=== PATIENT | female | born 1965 | race Caucasian/White ===

== ENCOUNTER 2016-07-12 17:45 | Emergency (ER) | payer OTHER ==
[~2016-07-12] VITALS: Wt 43.2 kg
[~2016-07-12 17:45] MED LIST: ASPI-664 PO; ATOR20TA65 PO; CARV6.2579 PO; CIPR1DRO3 LEFT EAR; FURO40TA4 PO; HYDR-3498 PO; LISI-313 PO; RISP2TAB3 PO; SPIR25TA PO
[2016-07-12] MEDS ORDERED: SODIUM CHLORIDE 0.9% 1L BAG IV* STA (18:12)
--- NOTE | 2016-07-12 18:35 | RADRPT ---
PROCEDURE: XR Chest. CLINICAL INDICATION: Sepsis TECHNIQUE: Single AP portable chest COMPARISON: None. FINDINGS: The cardiac silhouette is enlarged. Mild persistent vascular congestion. .The lungs are otherwise clear without pleural effusion or focal consolidation. No pneumothorax. The osseous structures and s oft tissues are unremarkable. IMPRESSION: 1. Cardiomegaly and mild vascular congestion. RPTAT:AAJJ Physician Frank Date Time Electronically viewed and signed by Physician Frank on 07/12/2016 18:35 RAYRAY/
[2016-07-12 18:45] LABS: BASOPHILS % 0.6 % (0.0-2.0); EOSINOPHILS # 0.1 10^3/ul (0.0-0.5); EOSINOPHILS % 1.7 % (0.0-7.0); HEMATOCRIT 42.6 % (37.0-47.0); HEMOGLOBIN 14.5 g/dl (12.0-16.0); LYMPHOCYTES # 2.5 10^3/ul (0.8-2.9); LYMPHOCYTES % 33.7 % (15.0-51.0); MEAN CORPUSCULAR HEMOGLOBIN 29.6 pg (29.0-33.0); MEAN CORPUSCULAR VOLUME 86.9 fl (82.0-101.0); MEAN PLATELET VOLUME 10.1 fl (7.4-10.4); MONOCYTE # 0.7 10^3/ul (0.3-0.9); MONOCYTES % 9.8 % (0.0-11.0); NEUTROPHIL # 4.1 10^3/ul (1.6-7.5); NEUTROPHILS % 54.2 % (39.0-77.0); PLATELET COUNT 325 10^3/UL (140-440); RED CELL DISTRIBUTION WIDTH 23.2 % (11.5-14.5); UNCORRECTED WBC 7.5 10^3/ul (4.8-10.8); WHITE BLOOD COUNT 7.5 10^3/ul (4.8-10.8)
[2016-07-12 18:47] LABS: CONDITION 1; LH ANALYZER COMMENTS 1
[2016-07-12 18:49] LABS: CHLORIDE 102 mmol/L (97-110)
[2016-07-12 18:50] LABS: ALBUMIN 3.9 g/dl (3.3-4.9); POTASSIUM 3.8 mmol/L (3.5-5.1); PROTIME 13.2 Sec (12.2-14.2); SODIUM 143 mmol/L (135-144)
[2016-07-12 18:51] LABS: PARTIAL THROMBOPLASTIN TIME 25.8 Sec (25.0-35.0)
[2016-07-12 18:52] LABS: CREATININE 0.66 mg/dl (0.44-1.00)
[2016-07-12 18:53] LABS: ALANINE AMINOTRANSFERASE 239 IU/L (13-69); ALKALINE PHOSPHATASE 159 IU/L (42-121); ANION GAP 18 (8-16); ASPARTATE AMINO TRANSFERASE 189 IU/L (15-46); BILIRUBIN,INDIRECT 0.4 mg/dl (0-1.1); BILIRUBIN,TOTAL 0.4 mg/dl (0.2-1.3); BLOOD UREA NITROGEN 20 mg/dl (7-20); CALCIUM 9.2 mg/dl (8.4-10.2); CARBON DIOXIDE 27 mmol/L (21-31); GLUCOSE 130 mg/dl (70-220); TOTAL PROTEIN 8.2 g/dl (6.1-8.1)
[2016-07-12 18:56] LABS: C-REACTIVE PROTEIN < 0.5 mg/dl (0.0-0.9)
--- NOTE | 2016-07-12 19:11 | RADRPT ---
PROCEDURE: CT head, without contrast. CLINICAL INDICATION: Head trauma. TECHNIQUE: Noncontrast CT examination of the head, with axial, sagittal and coronal reformatted im ages. Automated dose exposure control was employed. CTDI: 39.37 mGy and DLP: 630.20 mGy-cm. COMPARISON: None. FINDINGS: Mild chronic changes of atrophy and small vessel disease white matter. Note acute hemorrhage. Subarachnoid spaces are substantially preserved and symmetric. Ventricles are unremarkable. No mass effect. Shah-white matter distinction is preserved without evident decreased attenuation t o suggest acute or recent infarct. Sinuses and osseous structures are unremarkable. IMPRESSION: Mild chronic changes of atrophy and small vessel disease white matter, and otherwise, no acute proce ss in the head. RPTAT: UU Physician Carlota Date Time Electronically viewed and signed by Physician Carlota on 07/12/2016 19:10 RS/
[2016-07-12 19:14] LABS: TROPONIN-I < 0.012 ng/ml (0.00-0.12)
--- NOTE | 2016-07-12 19:40 | RADRPT ---
PROCEDURE: CT Cervical Spine without contrast. CLINICAL INDICATION: Trauma. Neck pain. TECHNIQUE: A CT of the cervical spine was performed on a CT scanner utilizing thin section axial images from the skull base through the thoracic inlet. Sagittal and coronal reformatted images were made. The CTDIvol is 15.27 mGy and the DLP is 267.0 8 mGycm. Automated exposure control, adjustmen t of the mA and/or kV according to patient size, use of iterative reconstruction technique. COMPARISON: None. FINDINGS: Reversal of the normal cervical lordosis at C3-C4 and C4-C5. Diffuse endplate sclerosis of C5, C6, and C7. No fracture is evident. C2-3: Subtle anterolisthesis of C2 and C3 of 2 mm with posterior spondylitic ridging and bilateral u ncinate process hypertrophy. Severe left and moderate right hypertrophic facet joint arthropathy re sulting in moderate to severe right and moderate left foraminal stenosis. Mild central canal stenosi s of 9 mm in AP dimension. No significant disk bulge or protrusion is evident. C3-4: Marked loss of disk height with a 3 mm anterolisthesis of C3 on C4 with right uncinate process hypertrophy and severe bilateral facet joint arthropathy left greater than right with severe bilate ral foraminal stenosis. No significant disk bulge or protrusion is evident. Moderate central canal stenosis of 8 mm in AP dimension C4-5: The disc is normal in height. No significant disk bulge or protrusion is evident. Moderate nathan ateral facet joint arthropathy right greater than left. Moderate right foraminal stenosis without c entral canal stenosis. C5-6: Severe loss of disk height with endplate sclerosis and prominent anterior endplate spurring. Posterior spondylitic ridging and bilateral uncinate process hypertrophy. 3 mm of retrolisthesis of C5 on C6. Bilateral uncinate process hypertrophy and moderate to severe bilateral facet joint arthr opathy resulting in severe right and moderate to severe left foraminal stenosis and moderate central canal stenosis of 7.6 mm in AP dimension.. No significant disk bulge or protrusion is evident. C6-7: Severe loss of disk height with degenerative endplate sclerosis, prominent endplate spurring and posterior spondylitic ridging. Bilateral uncinate process hypertrophy. Moderate to severe bila teral facet joint arthropathy greater on the right severe bilateral foraminal stenosis and mild cent ral canal stenosis of 9.8 mm in AP dimension. No significant disk bulge or protrusion is evident. C7-T1: 2 mm of anterolisthesis of C7-T1 with circumferential disk bulging and posterior spondylitic ridging. Moderate to severe bilateral foraminal stenosis. No central canal stenosis. No signific ant disk bulge or protrusion is evident. The lung apices are clear. IMPRESSION: 1. Severe multilevel degenerative disk and spondylitic changes with reversal of the normal cervical lordosis at C4 and C5. This results in varying degrees of bilateral foraminal and central canal alexandra nosis as detailed above. 2. No fracture or soft tissue abnormality. RPTAT:AAJJ Physician Frank Date Time Electronically viewed and signed by Physician Frank on 07/12/2016 19:39 RAYRAY/
--- NOTE | 2016-07-12 19:44 | ERA ---
ER Documentation Chief Complaint Date/Time DATE: 07/12/16 TIME: 19:38 Chief Complaint UNABLE TO MOVE UPPER OR LOWER EXTREMITIES X3 DAYS, C/O NECK PAIN UNK TRAUMA HPI 51-year-old female, no known past medical history. The patient is a very difficult historian. The patient states that she is homeless and she may have fallen approximately 2-3 days ago. She states since then she has had neck pain and cannot move her arms and legs. The patient is describing moderate throbbing neck pain but cannot characterize it further. She states that she feels that she cannot move her arms and legs and has not been able to walk since the fall. She did not hit her head she says. The patient denies any chest pain but cannot provide any further history. ROS All systems reviewed and are negative except as per history of present illness. Medications Home Meds Active Scripts Spironolactone* (Aldactone*) 25 Mg Tablet, 25 MG PO DAILY@06 for 30 Days, TAB 3 Refills Prov:INOCENTE,SONU 05/17/16 Furosemide* (Furosemide*) 40 Mg Tablet, 40 MG PO DAILY for 30 Days, TAB 3 Refills Prov:INOCENTESONU 05/17/16 Carvedilol* (Carvedilol*) 6.25 Mg Tablet, 6.25 MG PO BID for 30 Days, TAB 3 Refills Prov:INOCENTESONU 04/27/16 Aspirin* (Aspirin* EC) 81 Mg Tablet.dr, 81 MG PO DAILY for 30 Days Prov:INOCENTE,SONU 04/18/16 Atorvastatin Calcium (Atorvastatin Calcium) 20 Mg Tablet, 20 MG PO HS for 30 Days, TAB Prov:SONU BROWER 04/18/16 Reported Medications Lisinopril* (Lisinopril*) 5 Mg Tablet, 5 MG PO DAILY, #30 TAB 07/12/16 Discontinued Scripts Ciprofloxacin Hcl (CIPROFLOXACIN HCL) 1 Each Droperette, 1 DROP LEFT EAR BID for 7 Days Prov:INOCENTE,SONU 05/17/16 Lisinopril* (Lisinopril*) 5 Mg Tablet, 2.5 MG PO QHS for 30 Days, TAB Prov:INOCENTE,SONU 05/17/16 Risperidone* (Risperidone*) 2 Mg Tablet, 2 MG PO BID for 30 Days, TAB 3 Refills Prov:SONU BROWER 04/27/16 Hydrocodone Bit-Acetaminophen (Hydrocodone Bit-APAP) 5-325MG Tablet, 1 TAB PO Q6H Y for PAIN LEVEL 4-6, #60 TAB Prov:SONU BROWER 04/18/16 Allergies Allergies: Coded Allergies: haloperidol (Verified Allergy, Unknown, 07/12/16) PMhx/Soc History of Surgery: No Anesthesia Reaction: No Hx Neurological Disorder: Yes (numbness/tingling both feet) Hx Respiratory Disorders: Yes Hx Cardiac Disorders: Yes (CHF) Hx Psychiatric Problems: No Hx Miscellaneous Medical Probl: No Hx Alcohol Use: Yes Hx Substance Use: Yes (PREVIOUS) Hx Tobacco Use: Yes (current smoker) Smoking Status: Current every day smoker FmHx Family History: No diabetes Physical Exam Vitals Vital Signs Date Time Temp Pulse Resp B/P Pulse Ox O2 Delivery O2 Flow Rate FiO2 07/12/16 19:46 88 16 128/80 99 Room Air 07/12/16 17:51 98.9 92 20 77/51 100 Physical Exam General: Dirty, disheveled, cachectic Head: Normocephalic, atraumatic. Eyes: Pupils equally reactive, EOM intact ENT: Very dry mucous membranes Neck: Supple, no lymphadenopathy no midline tenderness or deformities, patient emergently placed in a c-collar Respiratory: Lungs clear bilaterally, no distress Cardiovascular: RRR, no murmurs, rubs, or gallops Abdominal: Soft, non-tender, non-distended, no peritoneal signs, pelvis is stable : Deferred MSK: No edema, no unilateral swelling, the patient cannot lift extremities against gravity however her exam seems to be somewhat inconsistent and the patient has slight movement of all 4 extremities Neurologic: Alert and oriented, motor exam as above, normal speech, generalized weakness as described above Skin: No rash, no contusions to the head chest or abdomen Psych: Normal mood Result Diagram: 07/12/160 07/12/160 Results 24 hrs Laboratory Tests Test 07/12/16 18:20 07/12/16 19:40 07/12/16 20:00 Activated Partial Thromboplast Time 25.8Sec Alanine Aminotransferase (ALT/SGPT) 239IU/L Albumin 3.9g/dl Albumin/Globulin Ratio 0.90 Alkaline Phosphatase 159IU/L Anion Gap 18 Aspartate Amino Transf (AST/SGOT) 189IU/L Basophils # 0.010^3/ul Basophils % 0.6% Blood Morphology Comment Blood Urea Nitrogen 20mg/dl C-Reactive Protein < 0.5mg/dl Calcium Level 9.2mg/dl Carbon Dioxide Level 27mmol/L Chloride Level 102mmol/L Creatinine 0.66mg/dl Direct Bilirubin 0.00mg/dl Eosinophils # 0.110^3/ul Eosinophils % 1.7% Erythrocyte Sedimentation Rate 25mm/Hr Ethyl Alcohol Level 173.0mg/dl Globulin 4.30g/dl Glucose Level 130mg/dl Hematocrit 42.6% Hemoglobin 14.5g/dl INR International Normalized Ratio 1.00 Indirect Bilirubin 0.4mg/dl Lactic Acid Level 3.2mmol/L 3.9mmol/L Lymphocytes # 2.510^3/ul Lymphocytes % 33.7% Mean Corpuscular Hemoglobin 29.6pg Mean Corpuscular Hemoglobin Concent 34.0g/dl Mean Corpuscular Volume 86.9fl Mean Platelet Volume 10.1fl Monocytes # 0.710^3/ul Monocytes % 9.8% Neutrophils # 4.110^3/ul Neutrophils % 54.2% Nucleated Red Blood Cells # 0.010^3/ul Nucleated Red Blood Cells % 0.0/100WBC Platelet Count 68783^3/UL Potassium Level 3.8mmol/L Prothrombin Time 13.2Sec Prothrombin Time Ratio 1.0 Red Blood Count 4.9010^6/ul Red Cell Distribution Width 23.2% Sodium Level 143mmol/L Total Bilirubin 0.4mg/dl Total Protein 8.2g/dl Troponin I < 0.012ng/ml White Blood Count 7.510^3/ul Urine Amphetamines Screen POSITIVE Urine Barbiturates NEGATIVE Urine Benzodiazepines Screen NEGATIVE Urine Bilirubin NEGATIVE Urine Cannabinoids NEGATIVE Urine Clarity CLEAR Urine Cocaine Screen NEGATIVE Urine Color LT. YELLOW Urine Glucose NEGATIVE% Urine Hemoglobin NEGATIVE Urine Ketones NEGATIVE Urine Leukocyte Esterase NEGATIVE Urine Nitrite NEGATIVE Urine Opiates Screen NEGATIVE Urine Specific [place] <=1.005 Urine Total Protein NEGATIVE Urine Urobilinogen 1.0 E.U./dL Urine pH 6.0 Current Medications Medications (Trade) Dose Ordered Sig/Thelma Route PRN Reason Start Time Stop Time Status Last Admin Dose Admin Sodium Chloride (NS) 1,340 ml BOLUS OVER 2 HOURS STAT IV* 07/12/16 18:12 07/12/16 18:15 DC 07/12/16 18:34 Morphine Sulfate (morphine) 4 mg ONCE STAT IV 07/12/16 20:07 07/12/16 20:17 DC 07/12/16 20:30 Ondansetron HCl (Zofran Inj) 4 mg ONCE STAT IV 07/12/16 20:07 07/12/16 20:17 DC 07/12/16 20:30 Lorazepam 0.5 mg 0.5 mg ONCE ONCE IV 07/12/16 21:00 07/12/16 21:01 DC 07/12/16 21:03 Sodium Chloride (NS) 1,000 ml @ 1,000 mls/hr Q1H STAT IV 07/12/16 21:18 07/12/16 22:17 DC Lorazepam (Ativan) 0.5 mg ONCE ONCE IV 07/12/16 23:00 07/12/16 23:01 DC Morphine Sulfate (morphine) 4 mg ONCE STAT IV 07/12/16 22:50 07/12/16 22:51 DC Procedures/MDM EKG, MONITORS, & DIAGNOSTIC IMAGING: EKG: I reviewed and interpreted a 12-lead EKG. Rhythm: Normal sinus rhythm Ectopy: None Intervals: No abnormalities ST segments: No elevations or depressions T waves: No contiguous inversions Chest x-ray: I reviewed and interpreted a 1 view of the chest Mediastinum: No enlargement Cardiac silhouette: No cardiomegaly Airspace: Clear lung godoy bilaterally without evidence of pneumothorax Bones: No evidence of fracture CT brain: IMPRESSION: Mild chronic changes of atrophy and small vessel disease white matter, and otherwise, no acute process in the head. RPTAT: UU CT cervical spine: IMPRESSION: 1. Severe multilevel degenerative disk and spondylitic changes with reversal of the normal cervical lordosis at C4 and C5. This results in varying degrees of bilateral foraminal and central canal stenosis as detailed above. 2. No fracture or soft tissue abnormality. MRI C-spine: IMPRESSION: 1. Multilevel degenerative spondylosis of the cervical spine as described above. 2. Multilevel central canal stenosis which is most prominent at C3-4 with moderate to severe narrowing. 3. Severe multilevel foraminal stenosis secondary to uncovertebral osteophytosis and facet arthropathy as described above. 4. Reversal of the cervical lordosis with 2 mm anterolisthesis at C3-4. RPTAT: HPNM Results were discussed with Regino Lopez at 07/12/2016 10:22:27 PM MRI L SPine IMPRESSION: 1. Trace degenerative 2 mm retrolisthesis of L3 and L4 without evidence for acute fractures or traumatic subluxations. 2. Mild disk space height loss and broad-based bulge at L3-4 with mild central canal stenosis. 3. Multilevel disk desiccation at L4-5 and L5-S1 4. Mild broad-based bulges at the L2-3 through L5-S1 level with mild central canal stenosis at L3-4 and L4-5. 5. Mild bilateral neural foraminal stenosis and subarticular recess stenosis at L3-4. Recommend correlation with a bilateral L3 and L4 radiculopathy respectively. MRI T spine IMPRESSION: 1.Unremarkable MRI of the thoracic spine without findings to explain the patient 's provided history. 2. For further information regarding the abnormalities on the MRI cervical spine , please refer to the separately issued report. Physician David Date Time Electronically viewed and signed by Physician David on 07/12/2016 22:31 LAB INTERPRETATION: Normal white count however the patient's lactic acid is slightly elevated at 3.2 than 3.9. Alcohol is slightly elevated at 173 and the patient does have positive amphetamine drug screen MEDICAL DECISION MAKING: The patient presents to the emergency room with possible fall, neck pain, weakness to upper and lower extremities bilaterally, hypotension. Her differential is extremely broad and somewhat perplexing. The patient seems to have some motor movement of all 4 extremities therefore not truly quadriplegic. She states a possible trauma therefore intracranial hemorrhage or C-spine injury is certainly possible. However the patient also has hypotension. This is presumed to be secondary to severe dehydration and malnutrition given that the patient has not been able to move for approximately 2-3 days. However consider possible infectious process such as sepsis. This does not appear to be neurogenic shock though must consider that as well. The patient will absolutely benefit from CT imaging of the head and cervical spine, aggressive fluid resuscitation and blood cultures. The patient will also likely require MRi imaging of the head and cervical spine. This is not consistent with a stroke given bilateral nature, patient does not appear to have a basilar artery stroke given normal sensorium, protecting her airway and intact cranial nerves. The patient's exam is somewhat inconsistent, consideration for malingering however benefit that must be provided and diagnostic imaging and workup will be initiated. Lower clinical concern for infectious process such as epidural abscess or hematoma. Consider possible transverse myelitis Guyon Cobb etc. ER COURSE: The patient was maintained in C-spine precautions. The patient states that she was unable to urinate and a Garcia catheter was placed. The patient has multiple abnormalities. Her blood pressure dramatically improved with fluid resuscitation. The patient does have a lactic acidosis but no Sirs criteria. This does raise the concern for dehydration versus spinal shock. The patient does not require pressors, fluid support is appropriate. At this time I do not feel the patient requires antibiotics. She has no Sirs criteria, no source. Blood cultures been taken. Lactic acid likely secondary to relative hypovolemia , continue fluid resuscitation. She has been given 3 L and total. The patient's CT imaging was negative prompting MRI imaging. The MRI of the cervical spine shows evidence of significant stenosis with myelopathy. This is likely the etiology of the patient's symptoms and weakness. I was able to speak to my neurosurgeon, Dr. Nguyen. We discussed the case. He is concerned that since the patient fell this is likely the source of the patient's injury and that she would benefit from transfer to a trauma center. He states that the patient likely has chronic cervical radiculopathy in her fall has led to an exacerbation of this leading to acute cord compression. He does not recommend steroids but does recommend transfer to trauma facility. Phone calls to be made to [facility] and [place] in order to arrange for transfer. The patient has been given pain control medication and anxiolysis here in the emergency room a total of 1 mg of Ativan and several doses of morphine. She remains protecting her airway. At this time the patient does not require central line, she has been responsive to fluids, blood pressure currently in the 140s systolic. I kept the patient and/or family informed of laboratory and diagnostic imaging results throughout the emergency room course. DISPOSITION PLAN: Transfer to a trauma center. The patient is endorsed to Dr. Nelson to follow- up on disposition planning. CONSULTATION: Neurosurgery, Dr. Nguyen, was notified and recommended transfer. Critical Care Note: Total time: 47 minutes Indication/Organ System Threat: Hypotension and acute cervical radiculopathy I spent the above amount of critical care time with the patient, not including billable procedures. This included chart review, consultations, repeat bedside evaluations, and titration of appropriate medications to prevent cardiopulmonary or respiratory collapse. Departure Diagnosis: Primary Impression: Acute cervical radiculopathy Additional Impressions: Cord compression myelopathy Lactic acidosis Condition: Stable REGINO LOPEZ MD Jul 12, 2016 19:44
[2016-07-12 19:46] VITALS: RESP 16
[2016-07-12] MEDS ORDERED: LISI-313 PO (19:50)
[2016-07-12] MEDS ORDERED: morphine 4 MG/ML VIAL IV STA ×2 (20:07→22:50)
[2016-07-12] MEDS ORDERED: ONDANSETRON 4 MG INJ IV STA (20:07)
[2016-07-12 20:09] LABS: ADD UMIC NO; URINE BILIRUBIN (Dip) NEGATIVE (NEGATIVE); URINE BLOOD (Dip) NEGATIVE (NEGATIVE); URINE COLOR LT. YELLOW (YELLOW); URINE GLUCOSE (Dip) NEGATIVE (NEGATIVE); URINE KETONES (Dip) NEGATIVE (NEGATIVE); URINE LEUKOCYTE ESTERASE (Dip) NEGATIVE (NEGATIVE); URINE NITRITE (Dip) NEGATIVE (NEGATIVE); URINE TOTAL PROTEIN (Dip) NEGATIVE (NEGATIVE); URINE UROBILINOGEN (Dip) 1.0 E.U./dL (0.1-1.0)
[2016-07-12 20:40] LABS: BARBITURATES NEGATIVE (NEGATIVE); BENZODIAZEPINES NEGATIVE (NEGATIVE); CANNABINOIDS NEGATIVE (NEGATIVE); COCAINE NEGATIVE (NEGATIVE); OPIATES NEGATIVE (NEGATIVE)
[2016-07-12] MEDS ORDERED: LORAZEPAM 2 MG INJ IV ONE ×2 (21:00→23:00)
[2016-07-12] MEDS ORDERED: SOD CHLORIDE 0.9% 1,000 ML IV STA (21:18)
--- NOTE | 2016-07-12 22:24 | RADRPT ---
PROCEDURE: MR Cervical Spine. CLINICAL INDICATION: Neck pain. Inability to walk. Arm and leg weakness TECHNIQUE: An MRI of the cervical spine was performed on a high-definition scanner utilizing the f ollowing sequences: Sagittal T1 weighted, sagittal axial T2 weighted, sagittal STIR, and axial GRE. COMPARISON: No prior studies are available for comparison. FINDINGS: Approximately 2 mm of anterolisthesis at C3-4 is seen. The remainder of the cervical lordosis is sl ightly reversed. There is maintenance of the normal vertebral body heights. Modic type 2 endplate c hanges are seen at C5-6. The remainder of the marrow signal throughout the visualized cervical spin e is homogeneous without focal abnormality. The craniocervical and cervical medullary junctions are unremarkable. Suggestion of a faint hyperintense T2 signal within the cord at the C3-4 level is seen . The remainder of the cervical cord is normal in caliber and signal intensity. The paravertebral s oft tissues are unremarkable. Multilevel endplate and uncovertebral osteophytosis is seen. Occiput-C2: The anatomic relationships are normal without canal stenosis. C2-3: Disk dessication is seen with mild disk height loss. A posterior disk bulge is seen. Ligamen mark flavum thickening is seen. Mild to moderate central canal stenosis is seen. Severe left forami nal stenosis and moderate foraminal stenosis is seen secondary to uncovertebral osteophytes and face t arthropathy. C3-4: Disk dessication is seen with mild to moderate disk height loss. A posterior disk osteophyte complex is seen. Ligamentum flavum thickening is seen. Moderate to severe central canal stenosis i s seen. Severe bilateral foraminal stenosis is seen secondary to uncovertebral osteophytosis and fa cet arthropathy. C4-5: Disk dessication is seen with mild to moderate disk height loss with a posterior disk bulge. Mild to moderate central canal stenosis is seen. Severe right foraminal stenosis and moderate to se florencio left foraminal stenosis is seen secondary to uncovertebral osteophytosis. C5-6: Disk dessication is seen. Moderate disk height loss is seen with a posterior disk osteophyte complex seen. Ligamentum flavum thickening is seen. Moderate central canal stenosis is seen. Sever e bilateral foraminal stenosis is seen secondary to uncovertebral osteophytosis. C6-7: Moderate to severe disk height loss is seen with post a disk osteophyte complex noted. Modera te central canal stenosis is seen. Severe bilateral foraminal stenosis is seen secondary to uncover tebral osteophytosis. C7-T1: The intervertebral disc is seen. Ligamentum flavum thickening is seen. Borderline central can al stenosis is seen. Moderate to severe bilateral foraminal stenosis is seen secondary to uncoverteb ral osteophytosis. IMPRESSION: 1. Multilevel degenerative spondylosis of the cervical spine as described above. 2. Multilevel central canal stenosis which is most prominent at C3-4 with moderate to severe narrow ing. 3. Severe multilevel foraminal stenosis secondary to uncovertebral osteophytosis and facet arthropa thy as described above. 4. Reversal of the cervical lordosis with 2 mm anterolisthesis at C3-4. RPTAT: HPNM Results were discussed with Regino Lopez at 07/12/2016 10:22:27 PM Physician Milly Date Time Electronically viewed and signed by Paulo Cuevas Physician on 07/12/2016 22:23 /
--- NOTE | 2016-07-12 22:31 | RADRPT ---
PROCEDURE: MR thoracic spine without contrast CLINICAL INDICATION: Weakness of arm and legs. Inability to ambulate TECHNIQUE: An MRI of the thoracic spine was performed utilizing sagittal T1-weighted, sagittal and axial T2-weighted, and sagittal STIR. COMPARISON: Cervical spine MRI 07/12/2016 FINDINGS: Vertebral bodies: Preservation of signal intensity and stature at every level. The kyphosis is int act as is alignment. Thoracic spinal cord: Normal in signal intensity and caliber at every level. T1-2: There is preservation of disk signal intensity and stature with no central canal or foraminal stenosis. The facet joints are normal. T2-3: No discogenic abnormality of significance is seen and there is no central canal or foraminal s tenosis. The facet joints are intact. T3-4: No discogenic abnormality of significance is seen and there is no central canal or foraminal stenosis. The facet joints are intact. T4-5: No discogenic abnormality of significance is seen and there is no facet arthropathy, central canal or foraminal stenosis. T5-6: No discogenic abnormality of significance is seen and there is no facet arthropathy, central canal or foraminal stenosis T6-7: No discogenic abnormality of significance is seen and there is no central canal or foraminal stenosis. The facet joints are intact. T7-8: No discogenic abnormality of significance is seen and there is no facet arthropathy, central c anal or foraminal stenosis T8-9: No discogenic abnormality of significance is seen and there is no facet arthropathy, central canal or foraminal stenosis T9-10: No discogenic abnormality of significance is seen and there is no facet arthropathy, central canal or foraminal stenosis T10-11: No discogenic abnormality of significance is seen and there is no facet arthropathy, central canal or foraminal stenosis T11-12: No discogenic abnormality of significance is seen and there is no facet arthropathy, centra l canal or foraminal stenosis T12-L1: No discogenic abnormality of significance is seen and there is no facet arthropathy, centra l canal or foraminal stenosis Non spine related findings: No abnormalities of significance are demonstrated. RPTAT:HJJR IMPRESSION: 1.Unremarkable MRI of the thoracic spine without findings to explain the patient's provided history. 2. For further information regarding the abnormalities on the MRI cervical spine, please refer to th e separately issued report. Thony Campos, Physician Date Time Electronically viewed and signed by Thony Campos Physician on 07/12/2016 22:31 JR/
--- NOTE | 2016-07-12 22:55 | RADRPT ---
PROCEDURE: MRI lumbar spine CLINICAL INDICATION: Weakness of the arms and legs TECHNIQUE: An MRI of the lumbar spine was performed utilizing the following sequences: Sagittal T 1 weighted, sagittal and dual echo axial T2 weighted, and sagittal T2 weighted with fat saturation. COMPARISON: No prior lumbar spine imaging available for comparison, prior CT abdomen pelvis 2015 FINDINGS: There is straightening of the normal lumbar lordosis. Trace 2 mm degenerative retrolisthesis of L3 a nd L4 is present. No acute fractures or traumatic subluxations are present. Preservation of verteb ral body heights and signal are noted. Mild anterior Modic type 2 degenerative endplate changes are present at the L3-4 level. The intervertebral discs demonstrate mild disk space height loss and L3 -4 and disk desiccation at L4-5 and L5-S1. The conus medullaris terminates normally at the L1 leve l. The bilateral paravertebral soft tissues are remarkable for several right renal cortical cysts wi th the largest measuring 1.2 cm in AP dimensions. The specific axial levels are as follows: T12 - L1: The disk is normal in appearance. The central canal, subarticular recess, and neural fo ramen are patent. Mild bilateral facet arthropathy and facet effusions are present. L1 - L2: The disk is normal in appearance. The central canal, subarticular recess, and neural for amen are patent. Mild bilateral facet arthropathy is present. L2 - L3: The disk is normal in appearance. A mild 2 mm annular bulge is present. The central canal , subarticular recess, and neural foramen are patent. Mild bilateral facet arthropathy is present. L3 - L4: Mild disk space height loss is present with a 2 mm broad-based bulge. Mild bilateral face t arthropathy and facet effusions are present. AP canal dimension is 9 mm. This results in a mild central canal stenosis, bilateral subarticular recess stenosis, and mild bilateral neural foraminal stenosis. Recommend correlation with a bilateral L4 and L3 radiculopathy respectively. L4 - L5: Disk desiccation is present with a mild 3 mm broad-based bulge. AP canal dimension is 9.7 mm. This results in a mild central canal stenosis, bilateral subarticular recess stenosis and bila teral neural foraminal stenosis. Mild bilateral facet arthropathy and facet effusions are present. L5 - S1: Disk desiccation is present with a mild annular bulge measuring 2 mm. A central annular te ar superimposed on a mild annular bulge. The central canal, subarticular recess and neural foramen a re patent. IMPRESSION: 1. Trace degenerative 2 mm retrolisthesis of L3 and L4 without evidence for acute fractures or traum atic subluxations. 2. Mild disk space height loss and broad-based bulge at L3-4 with mild central canal stenosis. 3. Multilevel disk desiccation at L4-5 and L5-S1 4. Mild broad-based bulges at the L2-3 through L5-S1 level with mild central canal stenosis at L3-4 and L4-5. 5. Mild bilateral neural foraminal stenosis and subarticular recess stenosis at L3-4. Recommend co rrelation with a bilateral L3 and L4 radiculopathy respectively. RPTAT: HDC .Marielle Suarez MD, Date Time Electronically viewed and signed by .Marielle Suarez MD, on 07/12/2016 22:55 .C/
--- NOTE | 2016-07-12 23:29 | RADRPT ---
PROCEDURE: MR Brain without contrast. CLINICAL INDICATION: Leg and arm weakness. TECHNIQUE: An MRI of the brain was performed on a 1.5 zoë scanner utilizing the following sequen rony: Sagittal T1 weighted, axial T2 weighted, axial FLAIR, coronal GRE, and axial diffusion weighted with ADC mapping. COMPARISON: None FINDINGS: No evidence of restricted diffusion to suggest acute or early subacute ischemic infarction. There i s no evidence of intracranial hemorrhage, mass effect, or midline shift. No extra-axial fluid collec tions are seen. No hypointense signal abnormalities are seen on the GRE images to suggest the presence of blood degr adation products. Scattered nonspecific periventricular and subcortical white matter T2 signal hyperintensity foci mos t compatible with sequelae of chronic microvascular ischemic injury. Differential diagnostic consid erations include sequelae of migraine, vasculopathy, and demyelinating disease. The brain parenchyma is otherwise normal in morphology with preservation of rivera white differentiati on . Age appropriate size of the ventricles and subarachnoid spaces. The posterior fossa contents, brainstem, seventh - eighth cranial nerve complexes, pituitary axis, o rbits, paranasal sinuses, and mastoid air cells are unremarkable. Normal flow voids are visible in the proximal intracranial arteries and dural sinuses, indicating pa tency. IMPRESSION: 1. No acute or early subacute ischemic infarction. 2. Nonspecific T2 signal hyperintensity foci of deep white matter most compatible with Chronic micr ovascular ischemic changes in the deep white matter. Differential diagnostic considerations discuss ed above. 3. No intracranial hemorrhage RPTAT:AAJJ Physician Frank Date Time Electronically viewed and signed by Physician Frank on 07/12/2016 23:28 RAYRAY/
[2016-07-13 01:03] VITALS: BP 189/105; PULSE 88; TEMP 98.5
== END 2016-07-13 01:39 | disposition short-term general hospital (02) ==
LOC: E/R 17:45
DX: M54.12 Radiculopathy, cervical region (principal); R40.2132 Coma scale, eyes open, to sound, at arrival to emergency department; G95.29 Other cord compression; E87.2 Acidosis; I50.9 Heart failure, unspecified; F17.210 Nicotine dependence, cigarettes, uncomplicated; G93.89 Other specified disorders of brain; R40.2242 Coma scale, best verbal response, confused conversation, at arrival to emergency department; R40.2362 Coma scale, best motor response, obeys commands, at arrival to emergency department; W18.39XA Other fall on same level, initial encounter; Y92.9 Unspecified place or not applicable; Z79.82 Long term (current) use of aspirin
CPT/HCPCS: 36415; 51702; 70450; 70551; 71010; 72125; 72141; 72146; 72148; 80053; 80306; 80307; 81003; 83605; 84484; 85025; 85610; 85651; 85730; 86140; 87040; 87086; 93005; 96361; 96374; 96375; 96376; J2060; J2270; J2405; J7030; Z7502

== ENCOUNTER 2016-09-03 13:12 | Inpatient (IN) | payer OTHER ==
[~2016-09-03] VITALS: Ht 154.9 cm; Wt 42.1 kg
[~2016-09-03 13:12] MED LIST changes: -CIPR1DRO3 LEFT EAR; -HYDR-3498 PO; -RISP2TAB3 PO
[2016-09-03] MEDS ORDERED: FAMO20TA18 PO (15:26)
[2016-09-03] MEDS ORDERED: METO25TA7 PO (15:27)
--- NOTE | 2016-09-03 16:33 | RADRPT ---
PROCEDURE: CT Cervical Spine without contrast. CLINICAL INDICATION: Unable to walk, bilateral lower extremity numbness. TECHNIQUE: The study was performed on a multislice multidetector CT scanner. Spiral axial 1 mm im ages were obtained through the cervical spine and reformatted at 2.5 mm slice thickness without cont rast. 1 or more of the following dose reduction techniques were utilized: Automated exposure contr ol, adjustment of the mA and/or kV according to patient's size, iterative reconstruction technique. Coronal and sagittal reformations were obtained. The images were reviewed on a PACS workstation. RADIATION DOSE: CTDIvol: 22.1 mGyDLP: 388.6 mGy-cm COMPARISON: 07/12/2016 FINDINGS: There is redemonstration of multilevel moderate to severe degenerative changes throughout the cervic al spine. There is 3-4 mm of anterolisthesis of C3 on the C4 and 2 mm of anterolisthesis of C4, sta ble compared to prior exam. There are diffuse anterior osteophytes with severe narrowing of the int ervertebral discs at C5-6 and C6-7, with associated severe discogenic endplate changes at these leve ls. There are moderate degenerate changes of the atlanto-odontoid articulation. There is mild post erior bowing of the tentorial membrane without significant narrowing of the craniocervical junction. There is a moderate right convex scoliosis centered at C3, stable compared to the prior exam. The craniocervical junction is intact. There is no evidence of fracture or dislocation. There is a no bone destruction or sclerosis. The paraspinal soft tissues are unremarkable. No significant parasp inal soft tissue swelling. The lung apices are normal in appearance. C2-3: There is a broad-based 2 mm posterior disc/osteophyte complex. The thecal sac measures 6.5 mm midline AP diameter. There is severe bilateral facet spondylosis with buckling ligamentum flavum. There is moderate bilateral uncovertebral joint spondylosis. There is severe bilateral neural fora checo narrowing. C3-4: There is a broad-based 2-3 mm posterior disc/osteophyte complex. The thecal sac measures 5.5 mm midline AP diameter. There is mild bilateral facet hypertrophy and moderate bilateral uncoverteb ral joint spondylosis. There is severe bilateral neural foraminal narrowing. C4-5: There is a broad-based 2 mm posterior disc/osteophyte complex. The thecal sac measures 8.8 mm midline AP diameter. There is moderate and mild left facet intervertebral joint spondylosis. Ther e is severe right and mild left neural foraminal narrowing. C5-6: There is a grade 1 retrolisthesis, with a superimposed 2-3 mm posterior disc/osteophyte comple x. The thecal sac measures 6.1 mm midline AP diameter. There is moderate bilateral facet hypertrop hy and severe bilateral uncovertebral joint spondylosis. There is severe bilateral neural foraminal narrowing. C6-7: There is a 2-3 mm posterior disc/osteophyte complex. The thecal sac measures 6.4 mm midline AP diameter. There is moderate bilateral facet hypertrophy and severe bilateral uncovertebral joint spondylosis. There is severe bilateral neural foraminal narrowing. C7-T1: There is a 1-2 mm posterior disc/osteophyte complex. The thecal sac is patent measuring 9 mm midline AP diameter. There is mild bilateral facet hypertrophy and moderate bilateral uncovertebra l joint spondylosis. There is severe bilateral neural foraminal narrowing. IMPRESSION: 1. No acute abnormality of the cervical spine. No evidence of fracture or dislocation. 2. No significant interval change compared to 07/12/2016. Stable appearance of multilevel severe d egenerative discs disease with multisegmental severe spinal stenosis at C2-3, C3-4, C5-6 and C6-7. 3. Multilevel facet and uncovertebral joint spondylosis with multilevel severe neural foraminal patricia rowing as discussed above. RPTAT: HGAS .Torin Chun MD, Date Time Electronically viewed and signed by .Torin Chun MD, on 09/03/2016 16:32 .S/
[2016-09-03] MEDS ORDERED: SOD CHLORIDE 0.9% 1,000 ML IV STA (16:46)
[2016-09-03 17:13] LABS: ADD SCAN DIFF NO
[2016-09-03 17:14] LABS: BASOPHIL # 0.1 10^3/ul (0.0-0.1); BASOPHILS % 0.6 % (0.0-2.0); EOSINOPHILS # 0.2 10^3/ul (0.0-0.5); EOSINOPHILS % 1.8 % (0.0-7.0); HEMATOCRIT 39.4 % (37.0-47.0); HEMOGLOBIN 12.9 g/dl (12.0-16.0); LYMPHOCYTES # 1.9 10^3/ul (0.8-2.9); LYMPHOCYTES % 18.5 % (15.0-51.0); MEAN CORPUSCULAR HEMOGLOBIN 32.1 pg (29.0-33.0); MEAN CORPUSCULAR HGB CONC 32.7 g/dl (32.0-37.0); MEAN PLATELET VOLUME 10.3 fl (7.4-10.4); MONOCYTE # 1.4 10^3/ul (0.3-0.9); MONOCYTES % 13.2 % (0.0-11.0); NEUTROPHIL # 6.7 10^3/ul (1.6-7.5); NEUTROPHILS % 65.5 % (39.0-77.0); PLATELET COUNT 397 10^3/UL (140-415); RED BLOOD COUNT 4.02 10^6/ul (4.20-5.40); RED CELL DISTRIBUTION WIDTH 14.1 % (11.5-14.5); WHITE BLOOD COUNT 10.3 10^3/ul (4.8-10.8)
[2016-09-03 17:29] LABS: ALBUMIN 4.1 g/dl (3.3-4.9)
[2016-09-03 17:31] LABS: CREATININE 2.37 mg/dl (0.44-1.00)
[2016-09-03 17:32] LABS: ALBUMIN/GLOBULIN RATIO 0.82; BILIRUBIN,INDIRECT 0.5 mg/dl (0-1.1); BILIRUBIN,TOTAL 0.5 mg/dl (0.2-1.3); CALCIUM 9.7 mg/dl (8.4-10.2); TOTAL PROTEIN 9.1 g/dl (6.1-8.1)
--- NOTE | 2016-09-03 17:40 | RADRPT ---
PROCEDURE: XR Chest. CLINICAL INDICATION: Shortness of breath. TECHNIQUE: A single portable view of the chest was obtained. COMPARISON: 07/12/2016 FINDINGS: The aorta is tortuous and atherosclerotic. The cardiomediastinal silhouette is otherwise mildly enl arged and is decreased in size.. The lungs and pleural spaces are clear. The soft tissues and osse ous structures demonstrate benign age related senescent changes. IMPRESSION: No acute cardiopulmonary disease. Mild cardiomegaly which has decreased in size. RPTAT: HPNM Physician Milly Date Time Electronically viewed and signed by Paulo Cuevas Physician on 09/03/2016 17:40 /
[2016-09-03 17:43] LABS: POTASSIUM 6.2 mmol/L (3.5-5.1)
[2016-09-03 17:44] LABS: TROPONIN-I 0.039 ng/ml (0.00-0.12)
[2016-09-03] MEDS ORDERED: NA POLYST SULFON 15 GM/60 ML BTL PO STA (17:54)
[2016-09-03] MEDS ORDERED: CA CHLORIDE 10% 10 ML SYRINGE IV STA (17:54)
[2016-09-03] MEDS ORDERED: NA BICARBONATE 8.4% 50 ML SYG IV STA (17:54)
[2016-09-03] MEDS ORDERED: INSULIN REGULAR, HUMAN 100 UNIT/1 ML 3ML VIAL IV STA (17:54)
[2016-09-03] MEDS ORDERED: DEXTROSE 50% 50 ML SYRINGE IV PRN (18:00)
[2016-09-03 18:45] LABS: ADD UMIC NO; URINE BILIRUBIN (Dip) NEGATIVE (NEGATIVE); URINE BLOOD (Dip) NEGATIVE (NEGATIVE); URINE COLOR LT. YELLOW (YELLOW); URINE KETONES (Dip) NEGATIVE (NEGATIVE); URINE LEUKOCYTE ESTERASE (Dip) NEGATIVE (NEGATIVE); URINE NITRITE (Dip) NEGATIVE (NEGATIVE); URINE TOTAL PROTEIN (Dip) NEGATIVE (NEGATIVE); URINE UROBILINOGEN (Dip) 0.2 E.U./dL (0.1-1.0)
[2016-09-03] MEDS ORDERED: SOD CHLORIDE 0.9% 1,000 ML IV SCH (19:13)
--- NOTE | 2016-09-03 19:20 | ERA ---
ER Documentation Chief Complaint Date/Time DATE: 09/03/16 TIME: 19:14 Chief Complaint NECK PAIN X 1 MONTH, UNABLE TO WALK HPI This 51-year-old female presents to the emergency room for evaluation of generalized weakness, neck pain for 1 month. The patient states that she is wheelchair-bound and has been getting worse. She states that she lives at a home and is not getting the care she needs at this home. She states that she is not in a nursing facility or rehabilitation center. The patient states that she came to the ER today for help because she is not getting the care she needs at this home where she is living at. ROS All systems reviewed and are negative except as per history of present illness. Medications Home Meds Active Scripts Furosemide* (Furosemide*) 40 Mg Tablet, 40 MG PO DAILY for 30 Days, TAB 3 Refills Prov:INOCENTESONU 05/17/16 Carvedilol* (Carvedilol*) 6.25 Mg Tablet, 6.25 MG PO BID for 30 Days, TAB 3 Refills Prov:INOCENTESONU 04/27/16 Atorvastatin Calcium (Atorvastatin Calcium) 20 Mg Tablet, 20 MG PO HS for 30 Days, TAB Prov:SONU BROWER 04/18/16 Reported Medications Metoprolol Succinate* (Toprol XL*) 25 Mg Tab.sr.24h, 25 MG PO DAILY, #30 TAB 09/03/16 Famotidine* (Famotidine*) 20 Mg Tablet, 20 MG PO BID, #60 TAB 09/03/16 Lisinopril* (Lisinopril*) 5 Mg Tablet, 5 MG PO DAILY, #30 TAB 07/12/16 Discontinued Scripts Spironolactone* (Aldactone*) 25 Mg Tablet, 25 MG PO DAILY@06 for 30 Days, TAB 3 Refills Prov:SONU BROWER 05/17/16 Aspirin* (Aspirin* EC) 81 Mg Tablet.dr, 81 MG PO DAILY for 30 Days Prov:SONU BROWER 04/18/16 Allergies Allergies: Coded Allergies: haloperidol (Verified Allergy, Unknown, 09/03/16) PMhx/Soc History of Surgery: No Anesthesia Reaction: No Hx Neurological Disorder: Yes (numbness/tingling both feet) Hx Respiratory Disorders: Yes Hx Cardiac Disorders: Yes (CHF) Hx Psychiatric Problems: No Hx Miscellaneous Medical Probl: No Hx Alcohol Use: Yes Hx Substance Use: Yes (PREVIOUS) Hx Tobacco Use: Yes (current smoker) Smoking Status: Former smoker Physical Exam Vitals Vital Signs Date Time Temp Pulse Resp B/P Pulse Ox O2 Delivery O2 Flow Rate FiO2 09/03/16 17:59 89 20 122/75 99 Room Air 09/03/16 13:28 99.3 108 18 97/64 100 Physical Exam INITIAL VITAL SIGNS: Reviewed by me GENERAL: The patient is poorly developed, cachectic appearing, disheveled appearance, wheelchair-bound HEENT: Dry mucous members pupils equal, round, and reactive to light. EOMI. There is no scleral icterus. NECK: C-spine is soft and supple, there is no meningismus. There is no cervical lymphadenopathy. LUNGS: Clear to auscultation bilaterally. There are no rales, wheezes or rhonchi. HEART: Regular rate and rhythm, no murmurs, clicks, rubs or gallops. ABDOMEN: Soft, non-tender, non-distended. There are bowel sounds in all four quadrants. No rebound or guarding. EXTREMITIES: There is no peripheral cyanosis or edema. No focal swelling or erythema. NEUROLOGICAL: The patient moves upper extremities with 5 out of 5 strength, lower extremities with 1 out of 5 strength. Cranial nerves II - XII are intact. Alert and oriented to person place and time SKIN: There is no apparent rash or petechiae. HEME/LYMPHATIC: There is no evidence of excessive bruising or lymphedema. PSYCHIATRIC: The patient does not appear anxious or depressed. Result Diagram: 09/03/16170909/03/16 1710 Results 24 hrs Laboratory Tests Test 09/03/16 17:10 09/03/16 18:07 09/03/16 18:25 White Blood Count 10.310^3/ul Red Blood Count 4.0210^6/ul Hemoglobin 12.9g/dl Hematocrit 39.4% Mean Corpuscular Volume 98.0fl Mean Corpuscular Hemoglobin 32.1pg Mean Corpuscular Hemoglobin Concent 32.7g/dl Red Cell Distribution Width 14.1% Platelet Count 17807^3/UL Mean Platelet Volume 10.3fl Neutrophils % 65.5% Lymphocytes % 18.5% Monocytes % 13.2% Eosinophils % 1.8% Basophils % 0.6% Nucleated Red Blood Cells % 0.0/100WBC Neutrophils # 6.710^3/ul Lymphocytes # 1.910^3/ul Monocytes # 1.410^3/ul Eosinophils # 0.210^3/ul Basophils # 0.110^3/ul Nucleated Red Blood Cells # 0.010^3/ul Sodium Level 136mmol/L Potassium Level 6.2mmol/L Chloride Level 97mmol/L Carbon Dioxide Level 26mmol/L Anion Gap 19 Blood Urea Nitrogen 78mg/dl Creatinine 2.37mg/dl Glucose Level 119mg/dl Calcium Level 9.7mg/dl Total Bilirubin 0.5mg/dl Direct Bilirubin 0.00mg/dl Indirect Bilirubin 0.5mg/dl Aspartate Amino Transf (AST/SGOT) 55IU/L Alanine Aminotransferase (ALT/SGPT) 69IU/L Alkaline Phosphatase 124IU/L Troponin I 0.039ng/ml Total Protein 9.1g/dl Albumin 4.1g/dl Globulin 5.00g/dl Albumin/Globulin Ratio 0.82 Lipase 84U/L Bedside Glucose 99mg/dL Urine Color LT. YELLOW Urine Clarity CLEAR Urine pH 5.5 Urine Specific Gilman 1.010 Urine Ketones NEGATIVE Urine Nitrite NEGATIVE Urine Bilirubin NEGATIVE Urine Urobilinogen 0.2 E.U./dL Urine Leukocyte Esterase NEGATIVE Urine Hemoglobin NEGATIVE Urine Glucose 0.1%% Urine Total Protein NEGATIVE Current Medications Medications (Trade) Dose Ordered Sig/Thelma Route PRN Reason Start Time Stop Time Status Last Admin Dose Admin Sodium Chloride (NS) 1,000 ml @ 1,000 mls/hr Q1H STAT IV 09/03/16 16:46 09/03/16 17:45 DC 09/03/16 17:14 Sodium Polystyrene Sulfonate (Kayexalate) 30 gm ONCE STAT PO 09/03/16 17:54 09/03/16 17:58 DC 09/03/16 18:07 Sodium Bicarbonate (Na Bicarb 8.4% Syg) 50 ml ONCE STAT IV 09/03/16 17:54 09/03/16 17:58 DC 09/03/16 18:03 Calcium Chloride (Ca Chloride 10% Syg) 1,000 mg ONCE STAT IV 09/03/16 17:54 09/03/16 17:58 DC 09/03/16 18:04 Insulin Human Regular (Humulin R) 10 unit ONCE STAT IV 09/03/16 17:54 09/03/16 17:58 DC 09/03/16 18:06 Dextrose (D50w Syringe) 50 ml ONCE PRN IV POC BLOOD GLUCOSE <250 MG/DL 09/03/16 18:00 09/03/16 23:00 09/03/16 18:04 Procedures/MDM EKG: Rate/Rhythm: [Normal Sinus Rhythm] QRS, ST, T-waves: [No changes consistent w/ acute ischemia] Impression: [No evidence of ischemia or arrhythmia] CT cervical spine: No fractures Chest X-ray 1V Interpreted by me: Soft Tissue: No acute abnormalities Bones: No acute abnormalities Mediastinum/Cardiac Silhouette/Lungs: Cardiomegaly This 51-year-old female presents to the emergency room for evaluation of multiple complaints including generalized weakness. The patient does state that she is had a previous neck injury. CT of the neck today was normal. She is wheelchair-bound, did have disheveled appearance. I did obtain lab work which shows a hyperkalemia. This patient was unable to give a urine sample and we did place a Garcia catheter with approximately 1200 cc of urine output. This patient likely has a urinary retention which is caused acute renal failure and hyperkalemia. She was given calcium gluconate, insulin, bicarb, and dextrose. This patient has no EKG changes however given her acute renal failure and hyperkalemia she will be placed in for admission at this time. I have contacted our social work in regards to this patient's housing and they have not been able to facilitate us in helping out with her housing at this time. This patient will be admitted with social work consult in the morning again. This patient denies any back pain. My suspicion for cauda equina is low at this time. Patient will be admitted to her panel physician, Dr. Yoo. Critical Care: Excluding all billable procedures Time: 33 minutes Treatments/Evaluations: Close monitoring and treatment of unstable vital signs, cardiorespiratory, and neurologic status, while maintaining tight balance of fluid, respiratory, and cardiac interventions. Departure Diagnosis: Primary Impression: Acute renal failure Additional Impressions: Hyperkalemia Urinary retention Generalized weakness Condition: Serious JOSUE ONEILL DO Sep 03, 2016 19:20
[2016-09-03] MEDS ORDERED: ACETAMINOPHEN 325 MG TAB PO PRN (19:30)
[2016-09-03] MEDS ORDERED: ONDANSETRON 4 MG INJ IV PRN (19:30)
[2016-09-03 23:17] VITALS: PULSE 85
[2016-09-03 23:24] VITALS: Ht 154.9 cm; Wt 42.1 kg
[2016-09-03 23:45] VITALS: BP 122/75; RESP 18
[2016-09-04] VITALS (11 sets, daily range): BP systolic 96–137; BP diastolic 55–100; PULSE 71–100; RESP 16–20
[2016-09-04] MEDS ORDERED: ONDANSETRON 4 MG INJ IV PRN (00:30)
[2016-09-04 01:45] LABS: ADD SCAN DIFF NO; BASOPHILS % 0.4 % (0.0-2.0); EOSINOPHILS # 0.2 10^3/ul (0.0-0.5); EOSINOPHILS % 2.2 % (0.0-7.0); HEMATOCRIT 36.4 % (37.0-47.0); HEMOGLOBIN 12.2 g/dl (12.0-16.0); LYMPHOCYTES % 24.4 % (15.0-51.0); MEAN CORPUSCULAR HEMOGLOBIN 32.4 pg (29.0-33.0); MEAN CORPUSCULAR HGB CONC 33.5 g/dl (32.0-37.0); MEAN CORPUSCULAR VOLUME 96.6 fl (82.0-101.0); MEAN PLATELET VOLUME 10.8 fl (7.4-10.4); MONOCYTE # 0.7 10^3/ul (0.3-0.9); MONOCYTES % 8.9 % (0.0-11.0); NEUTROPHIL # 5.2 10^3/ul (1.6-7.5); NEUTROPHILS % 63.7 % (39.0-77.0); PLATELET COUNT 340 10^3/UL (140-415); RED BLOOD COUNT 3.77 10^6/ul (4.20-5.40); RED CELL DISTRIBUTION WIDTH 13.8 % (11.5-14.5); WHITE BLOOD COUNT 8.2 10^3/ul (4.8-10.8)
[2016-09-04 01:54] LABS: POTASSIUM 4.5 mmol/L (3.5-5.1)
[2016-09-04 01:57] LABS: CREATININE 1.83 mg/dl (0.44-1.00)
[2016-09-04 01:58] LABS: CALCIUM 10.5 mg/dl (8.4-10.2)
[2016-09-04] MEDS ORDERED: FAMOTIDINE 20 MG TAB PO SCH (09:00)
[2016-09-04] MEDS: HEPARIN 5,000 UNIT/0.5 ML VIAL SC SCH ×2 (09:00→21:58)
[2016-09-04] MEDS: METOPROLOL (XL) 25 MG TAB PO SCH (09:00)
--- NOTE | 2016-09-04 10:34 | HP ---
Date/Time of Note Date/Time of Note DATE: 09/04/16 TIME: 10:29 Assessment/Plan VTE Prophylaxis VTE Prophylaxis Intervention: SCD's Lines/Catheters Urinary Cath still in place: Yes Reason Cath still needed: other (indicate) Assessment/Plan Assessment/Plan 1. GEOFFREY - will hydrate - will hold lisinopril and lasix for now Renal u/s and nephrology consult as needed 2. Chronic right pleural effusion. It is mostly unchanged. 3. Chronic pericardial effusion. recently case was discussed with Dr. Becerra on previous admission and determined no need for repeat Echo. Continue current management 4. Known left ventricular thrombus. - Lovenox treatment dose. Patient has been refusing on/off previously and I believe has not been taking anti-coag at home 5. Hyperkalemia, resolved. Continue Lasix and Aldactone. Stable on current dose of diuretics. Follow up BMP and mag today 6. Hx of psychiatric Illness: cont meds 7. Tobacco use. Continue nicotine patch. 8. placement: SW will handle HPI/ROS Admit Date/Time Admit Date/Time Sep 03, 2016 at 19:13 Hx of Present Illness This 51-year-old female presents to the emergency room for evaluation of generalized weakness, neck pain for 1 month. The patient states that she is wheelchair-bound and has been getting worse. She states that she lives at a home and is not getting the care she needs at this home. She states that she is not in a nursing facility or rehabilitation center. The patient states that she came to the ER today for help because she is not getting the care she needs at this home where she is living at. PMH/Family/Social Social History Smoking Status: Current every day smoker Exam/Review of Systems Vital Signs Vitals Vital Signs Date Time Temp Pulse Resp B/P Pulse Ox O2 Delivery O2 Flow Rate FiO2 09/04/16 08:37 71 09/04/16 07:41 98.1 18 96/67 98 09/03/16 19:50 Room Air Exam Exam Constitutional: other (sleepy, but arousable. Thinly build and weak-appearing) Head: atraumatic, normocephalic Eyes: EOMI, PERRL Respiratory: diminished breath sounds Cardiovascular: regular rate and rhythm, systolic murmur Gastrointestinal: non-tender, soft Extremities: normal pulses Labs Result Diagram: 09/04/16 0109 09/04/16 0109 Medications Medications Current Medications Ondansetron HCl (Zofran Inj) 4 mg Q6H PRN IV NAUSEA AND/OR VOMITING; Start 04/12 at 00:30 Heparin Sodium (Porcine) (Heparin (5000 Units/0.5 ml)) 5,000 unit BID SC ; Start 09/04/16 at 09:00 Acetaminophen (Tylenol Tab) 650 mg Q6H PRN PO PAIN AND OR ELEVATED TEMP; Start 09/04/16 at 00:30 Atorvastatin Calcium (Lipitor) 20 mg HS PO ; Start 09/04/16 at 21:00 Carvedilol (Coreg) 6.25 mg BID PO ; Start 09/04/16 at 09:00 Famotidine (Pepcid) 20 mg BID PO Last administered on 09/04/16t 09:39; Admin Dose 20 MG; Start 09/04/16 at 09:00 Metoprolol Succinate (Toprol Xl) 25 mg DAILY PO ; Start 09/04/16 at 09:00 ANGEL PRIETO MD Sep 04, 2016 10:34
--- NOTE | 2016-09-04 15:48 | PN ---
Date/Time of Note Date/Time of Note DATE: 09/04/16 TIME: 15:42 Assessment/Plan VTE Prophylaxis VTE Prophylaxis Intervention: LMWH Lines/Catheters Urinary Cath still in place: Yes Reason Cath still needed: urinary retention Assessment/Plan Chief Complaint/Hosp Course S: Weak/ cranky/ wants to be left alone. Complains of pain dyspnea. Not oriented or not trying to answer present commands. Nonfocal. O: vss PE No pallor droop Reg Clear Bs+nt nd, no R/R/G Ext: Hypotonia but no edema. No tenderness of joints. Rom intact. A/P 1. Acute renal failure. Likely prerenal. Stable check ultrasound 2. Hyperkalemia. DC ACEi 3. Failure to thrive. Placement issue. Potentially back home with supportive care. 4. Chr psychosis 5. Substance abuse/methamphetamine. 6. Tobacco abuse 7. Probable chronic pain 8. Chr nonischemic cardiomyopathy. EF of 20%. 9. Chr pleural pericardial effusion due to #8. 10. Chr hepatitis C viremia? 11. Anemia 12. Htn 13. 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 15. Chr cervical stenosis. Not a surgical candidate. 16. Chr right loculated pleural effusion. No evidence of sepsis. Not a surgical candidate. Problems: Exam/Review of Systems Vital Signs Vitals Vital Signs Date Time Temp Pulse Resp B/P Pulse Ox O2 Delivery O2 Flow Rate FiO2 09/04/16 12:22 91 09/04/16 12:00 98.1 18 115/69 98 09/03/16 19:50 Room Air Results Result Diagram: 09/04/16 0109 09/04/16 0109 Results 24 hrs Laboratory Tests Test 09/03/16 17:10 09/03/16 18:07 09/03/16 18:25 09/03/16 20:43 White Blood Count 10.3 # Red Blood Count 4.02 L Hemoglobin 12.9 Hematocrit 39.4 Mean Corpuscular Volume 98.0 Mean Corpuscular Hemoglobin 32.1 Mean Corpuscular Hemoglobin Concent 32.7 Red Cell Distribution Width 14.1 # Platelet Count 397 Mean Platelet Volume 10.3 Neutrophils % 65.5 Lymphocytes % 18.5 Monocytes % 13.2 H Eosinophils % 1.8 Basophils % 0.6 Nucleated Red Blood Cells % 0.0 Neutrophils # 6.7 Lymphocytes # 1.9 Monocytes # 1.4 H Eosinophils # 0.2 Basophils # 0.1 Nucleated Red Blood Cells # 0.0 Sodium Level 136 Potassium Level 6.2 *H Chloride Level 97 Carbon Dioxide Level 26 Anion Gap 19 H Blood Urea Nitrogen 78 H Creatinine 2.37 H Glucose Level 119 Calcium Level 9.7 Total Bilirubin 0.5 Direct Bilirubin 0.00 Indirect Bilirubin 0.5 Aspartate Amino Transf (AST/SGOT) 55 H Alanine Aminotransferase (ALT/SGPT) 69 Alkaline Phosphatase 124 H Troponin I 0.039 Total Protein 9.1 H Albumin 4.1 Globulin 5.00 H Albumin/Globulin Ratio 0.82 Lipase 84 Bedside Glucose 99 77 Urine Color LT. YELLOW Urine Clarity CLEAR Urine pH 5.5 Urine Specific Bronson 1.010 Urine Ketones NEGATIVE Urine Nitrite NEGATIVE Urine Bilirubin NEGATIVE Urine Urobilinogen 0.2 E.U./dL Urine Leukocyte Esterase NEGATIVE Urine Hemoglobin NEGATIVE Urine Glucose 0.1% H Urine Total Protein NEGATIVE Test 09/04/16 01:09 White Blood Count 8.2 # Red Blood Count 3.77 L Hemoglobin 12.2 Hematocrit 36.4 L Mean Corpuscular Volume 96.6 Mean Corpuscular Hemoglobin 32.4 Mean Corpuscular Hemoglobin Concent 33.5 Red Cell Distribution Width 13.8 Platelet Count 340 Mean Platelet Volume 10.8 H Neutrophils % 63.7 Lymphocytes % 24.4 Monocytes % 8.9 Eosinophils % 2.2 Basophils % 0.4 Nucleated Red Blood Cells % 0.0 Neutrophils # 5.2 Lymphocytes # 2.0 Monocytes # 0.7 Eosinophils # 0.2 Basophils # 0.0 Nucleated Red Blood Cells # 0.0 Sodium Level 143 Potassium Level 4.5 Chloride Level 105 Carbon Dioxide Level 26 Anion Gap 17 H Blood Urea Nitrogen 68 H Creatinine 1.83 H Glucose Level 107 Calcium Level 10.5 H Medications Medications Current Medications Ondansetron HCl (Zofran Inj) 4 mg Q6H PRN IV NAUSEA AND/OR VOMITING; Start 04/12 at 00:30 Heparin Sodium (Porcine) (Heparin (5000 Units/0.5 ml)) 5,000 unit BID SC ; Start 09/04/16 at 09:00 Acetaminophen (Tylenol Tab) 650 mg Q6H PRN PO PAIN AND OR ELEVATED TEMP; Start 09/04/16 at 00:30 Atorvastatin Calcium (Lipitor) 20 mg HS PO ; Start 09/04/16 at 21:00 Carvedilol (Coreg) 6.25 mg BID PO ; Start 09/04/16 at 09:00 Metoprolol Succinate (Toprol Xl) 25 mg DAILY PO ; Start 09/04/16 at 09:00 Famotidine (Pepcid) 20 mg DAILY PO ; Start 09/05/16 at 09:00 JESS BAHENA MD Sep 04, 2016 15:48
[2016-09-04] MEDS ORDERED: ALBUTEROL 18 GM INHALER INH PRN (16:00)
[2016-09-04] MEDS ORDERED: GUAIFENESIN/CODEINE 5ML CUP PO PRN (16:00)
[2016-09-04] MEDS: SOD CHLORIDE 0.9% 1,000 ML IV SCH (16:56)
[2016-09-04] MEDS ORDERED: MAGNESIUM HYDROXIDE 30ML CUP PO ONE (21:46)
[2016-09-04] MEDS: ATORVASTATIN 20 MG TAB PO SCH (21:57)
--- NOTE | 2016-09-04 22:08 | RADRPT ---
PROCEDURE: Renal US. CLINICAL INDICATION: Renal failure TECHNIQUE: Multiple sonographic images of the kidneys were obtained. The images were reviewed on a PACS workstation. COMPARISON: No prior studies are available for comparison. FINDINGS: Right kidney: Normal in size, contour and echogenicity. No mass, calculus or hydronephrosis is pre sent. Renal size is estimated at 10.1 x 4.3 x 4 cm. Normal blood flow is demonstrated on Doppler in terrogation. Left kidney: Normal in size, contour and echogenicity. No mass, calculus or hydronephrosis is pres ent. Renal size is estimated at 10.8 x 4.3 x 3.4 cm. Normal blood flow is demonstrated on Doppler i nterrogation. RPTAT:HJJR IMPRESSION: 1. Unremarkable renal ultrasound. Physician David Date Time Electronically viewed and signed by Physician David on 09/04/2016 22:08 /
[2016-09-05] VITALS (13 sets, daily range): BP systolic 109–138; BP diastolic 64–81; PULSE 61–161; RESP 16–19
[2016-09-05] MEDS: DOCUSATE SODIUM 100 MG CAP PO SCH ×2 (08:43→20:44)
[2016-09-05] MEDS: METOPROLOL (XL) 25 MG TAB PO SCH (08:43)
[2016-09-05] MEDS: FAMOTIDINE 20 MG TAB PO SCH (08:43)
[2016-09-05] MEDS: HEPARIN 5,000 UNIT/0.5 ML VIAL SC SCH ×2 (08:50→20:46)
[2016-09-05] MEDS: SOD CHLORIDE 0.9% 1,000 ML IV SCH ×2 (11:52→20:48)
--- NOTE | 2016-09-05 12:25 | PN ---
Date/Time of Note Date/Time of Note DATE: 09/05/16 TIME: 12:22 Assessment/Plan VTE Prophylaxis VTE Prophylaxis Intervention: heparin Lines/Catheters IV Catheter Type (from Nrs): Peripheral IV Urinary Cath still in place: Yes Reason Cath still needed: urinary retention Assessment/Plan Chief Complaint/Hosp Course S: 09/04 weak/ cranky/ wants to be left alone. Complains of pain dyspnea. Not oriented or not trying to answer present commands. Nonfocal. 09/05 "I broke my neck"... When..." I do not know". Did not have breakfast. Not oriented or not cooperating. Refused blood draws. No distress. O: vss PE No pallor/ jvd Reg Clear Bs+nt nd, no R/R/G Ext: Hypotonia but no edema. A/P 1. Acute renal failure. Likely prerenal. No obstruction. Improved. Medically cleared for discharge. 2. Hyperkalemia. DC ACEi 3. Failure to thrive. Placement issue. Potentially back home with supportive care. 4. Chr psychosis 5. Substance abuse/methamphetamine. 6. Tobacco abuse 7. Probable chronic pain 8. Chr nonischemic cardiomyopathy. EF of 20%. 9. Chr pleural pericardial effusion due to #8. 10. Chr hepatitis C viremia? 11. Anemia 12. Htn 13. 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 15. Chr cervical stenosis. "Fracture." not a surgical candidate. 16. Chr right loculated pleural effusion. No evidence of sepsis. Not a surgical candidate. Problems: Exam/Review of Systems Vital Signs Vitals Vital Signs Date Time Temp Pulse Resp B/P Pulse Ox O2 Delivery O2 Flow Rate FiO2 09/05/16 12:17 61 09/05/16 11:39 97.7 19 113/70 97 09/05/16 03:08 Room Air Intake and Output 09/04/16 09/04/16 09/05/16 15:00 23:00 07:00 Intake Total 870 ml Output Total 1600 ml Balance -730 ml Results Result Diagram: 09/04/1610809/04/16108 Medications Medications Current Medications Ondansetron HCl (Zofran Inj) 4 mg Q6H PRN IV NAUSEA AND/OR VOMITING; Start 04/12 at 00:30 Heparin Sodium (Porcine) (Heparin (5000 Units/0.5 ml)) 5,000 unit BID SC Last administered on 09/04/16 21:58; Admin Dose 5,000 UNIT; Start 09/04/16 at 09:00 Acetaminophen (Tylenol Tab) 650 mg Q6H PRN PO PAIN AND OR ELEVATED TEMP; Start 09/04/16 at 00:30 Atorvastatin Calcium (Lipitor) 20 mg HS PO Last administered on 09/04/16 21:57 ; Admin Dose 20 MG; Start 09/04/16 at 21:00 Carvedilol (Coreg) 6.25 mg BID PO Last administered on 09/05/16 08:43; Admin Dose 6.25 MG; Start 09/04/16 at 09:00 Metoprolol Succinate (Toprol Xl) 25 mg DAILY PO Last administered on 09/05/16 08:43; Admin Dose 25 MG; Start 09/04/16 at 09:00 Famotidine 20 mg 20 mg DAILY PO Last administered on 09/05/16 08:43; Admin Dose 20 MG; Start 09/05/16 at 09:00 Sodium Chloride (NS) 1,000 ml @ 50 mls/hr Q20H IV Last administered on 16:56; Admin Dose 50 MLS/HR; Start 09/04/16 at 16:00 Guaifenesin/ Codeine Phosphate (Robitussin Ac Liquid Cup) 10 ml Q4H PRN PO COUGH Last administered on 09/04/16 21:56; Admin Dose 10 ML; Start 09/04/16 at 16:00 Docusate Sodium (Colace) 100 mg BID PO Last administered on 09/05/16 08:43; Admin Dose 100 MG; Start 09/05/16 at 09:00 JESS BAHENA MD Sep 05, 2016 12:25
[2016-09-05] MEDS: MAGNESIUM OXIDE 400 MG TAB PO SCH ×2 (15:56→20:44)
[2016-09-05 18:08] LABS: ADD SCAN DIFF NO
[2016-09-05 18:10] LABS: BASOPHILS % 0.5 % (0.0-2.0); EOSINOPHILS # 0.2 10^3/ul (0.0-0.5); EOSINOPHILS % 2.7 % (0.0-7.0); HEMATOCRIT 35.2 % (37.0-47.0); HEMOGLOBIN 11.5 g/dl (12.0-16.0); LYMPHOCYTES # 1.1 10^3/ul (0.8-2.9); LYMPHOCYTES % 18.9 % (15.0-51.0); MEAN CORPUSCULAR HEMOGLOBIN 31.6 pg (29.0-33.0); MEAN CORPUSCULAR HGB CONC 32.7 g/dl (32.0-37.0); MEAN CORPUSCULAR VOLUME 96.7 fl (82.0-101.0); MEAN PLATELET VOLUME 10.4 fl (7.4-10.4); MONOCYTE # 0.5 10^3/ul (0.3-0.9); NEUTROPHIL # 4.1 10^3/ul (1.6-7.5); NEUTROPHILS % 68.7 % (39.0-77.0); PLATELET COUNT 237 10^3/UL (140-415); RED BLOOD COUNT 3.64 10^6/ul (4.20-5.40); RED CELL DISTRIBUTION WIDTH 13.4 % (11.5-14.5)
[2016-09-05 18:22] LABS: INR 0.89; PT RATIO 0.9
[2016-09-05 18:28] LABS: CALCIUM 9.9 mg/dl (8.4-10.2); CREATININE 1.18 mg/dl (0.44-1.00); MAGNESIUM 1.9 mg/dl (1.7-2.5); PHOSPHORUS 3.5 mg/dl (2.5-4.9)
[2016-09-05 18:56] LABS: THYROID STIMULATING HORMONE 0.936 MIU/L (0.465-4.680)
[2016-09-05] MEDS: ATORVASTATIN 20 MG TAB PO SCH (20:44)
[2016-09-05] MEDS: ACETAMINOPHEN 325 MG TAB PO PRN (22:33)
[2016-09-06 05:49] LABS: CREATININE 1.17 mg/dl (0.44-1.00); MAGNESIUM 2.1 mg/dl (1.7-2.5); PHOSPHORUS 3.8 mg/dl (2.5-4.9); POTASSIUM 4.4 mmol/L (3.5-5.1)
[2016-09-06 07:48] VITALS: BP 196/91; RESP 16
[2016-09-06] MEDS: DOCUSATE SODIUM 100 MG CAP PO SCH ×2 (08:00→20:58)
[2016-09-06] MEDS: FAMOTIDINE 20 MG TAB PO SCH (08:00)
[2016-09-06] MEDS: MAGNESIUM OXIDE 400 MG TAB PO SCH ×2 (08:00→20:58)
[2016-09-06] MEDS: METOPROLOL (XL) 25 MG TAB PO SCH (08:01)
[2016-09-06] MEDS: HEPARIN 5,000 UNIT/0.5 ML VIAL SC SCH ×2 (08:10→21:00)
[2016-09-06 09:55] VITALS: BP 155/106; PULSE 72; RESP 17
--- NOTE | 2016-09-06 15:06 | PN ---
Date/Time of Note Date/Time of Note DATE: 09/06/16 TIME: 14:59 Assessment/Plan VTE Prophylaxis VTE Prophylaxis Intervention: LMWH Lines/Catheters IV Catheter Type (from Nrs): Peripheral IV Urinary Cath still in place: Yes Reason Cath still needed: urinary retention Assessment/Plan Chief Complaint/Hosp Course S: 09/04 weak/ cranky/ wants to be left alone. Complains of pain dyspnea. Not oriented or not trying to answer present commands. Nonfocal. 09/05 "I broke my neck"... When..." I do not know". Did not have breakfast. Not oriented or not cooperating. Refused blood draws. No distress. 09/06 -worried about her hands. refused PT/OT; -pt state's, " I dont walk, why I need therapy for" O: vss PE No pallor Reg Clear Bs+nt nd, no R/R/G Ext: Hypotonia but no edema. + contracture bilat upper ext A/P 1. ARF. Likely prerenal. No obstruction. Improved. Medically cleared for discharge. 2. Hyperkalemia. DC ACEi 3. FTT. Placement issue. Potentially back home w supportive care. 4. Chr psychosis 5. Substance abuse/methamphetamine. 6. Tobacco abuse 7. Probable chr pain 8. Chr nonischemic cardiomyopathy. EF of 20%. 9. Chr pleural pericardial effusion due to #8. 10. Chr hepatitis C viremia? 11. Anemia 12. Htn 13. 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 15. Chr cervical stenosis. "Fracture." not a surgical candidate. Very symptomatic, but w severe nonadherence & no stability of her comorbidities, we cannot clear her for any surgery. High risk of demise, needs advanced care planning re-evalutated. 16. Chr right loculated pl effusion. No evidence of sepsis. Not a surgical candidate. 17. Urinary Retention. Problems: Exam/Review of Systems Vital Signs Vitals Vital Signs Date Time Temp Pulse Resp B/P Pulse Ox O2 Delivery O2 Flow Rate FiO2 09/06/16 09:55 72 17 155/106 Room Air 09/06/16 07:48 97.7 100 Intake and Output 09/05/16 09/05/16 09/06/16 15:00 23:00 07:00 Intake Total 120 ml Output Total 225 ml Balance -105 ml Results Result Diagram: 09/05/16 1753 09/06/16 0500 Results 24 hrs Laboratory Tests Test 09/05/16 17:53 09/06/16 05:00 White Blood Count 6.0 # Red Blood Count 3.64 L Hemoglobin 11.5 L Hematocrit 35.2 L Mean Corpuscular Volume 96.7 Mean Corpuscular Hemoglobin 31.6 Mean Corpuscular Hemoglobin Concent 32.7 Red Cell Distribution Width 13.4 Platelet Count 237 # Mean Platelet Volume 10.4 Neutrophils % 68.7 Lymphocytes % 18.9 Monocytes % 9.0 Eosinophils % 2.7 Basophils % 0.5 Nucleated Red Blood Cells % 0.0 Neutrophils # 4.1 Lymphocytes # 1.1 Monocytes # 0.5 Eosinophils # 0.2 Basophils # 0.0 Nucleated Red Blood Cells # 0.0 Prothrombin Time 12.0 L Prothrombin Time Ratio 0.9 INR International Normalized Ratio 0.89 Sodium Level 138 140 Potassium Level 5.0 4.4 Chloride Level 103 105 Carbon Dioxide Level 30 30 Anion Gap 10 # 9 Blood Urea Nitrogen 39 #H 34 H Creatinine 1.18 H 1.17 H Glucose Level 128 117 Hemoglobin A1c 5.7 Calcium Level 9.9 10.0 Phosphorus Level 3.5 3.8 Magnesium Level 1.9 2.1 Thyroid Stimulating Hormone (TSH) 0.936 Serum HCG, Qualitative NEGATIVE Medications Medications Current Medications Ondansetron HCl (Zofran Inj) 4 mg Q6H PRN IV NAUSEA AND/OR VOMITING; Start 04/12 at 00:30 Heparin Sodium (Porcine) (Heparin (5000 Units/0.5 ml)) 5,000 unit BID SC Last administered on 09/06/16 08:10; Admin Dose 5,000 UNIT; Start 09/04/16 at 09:00 Acetaminophen (Tylenol Tab) 650 mg Q6H PRN PO PAIN AND OR ELEVATED TEMP Last administered on 09/05/16 22:33; Admin Dose 650 MG; Start 09/04/16 at 00:30 Atorvastatin Calcium (Lipitor) 20 mg HS PO Last administered on 09/05/16 20:44 ; Admin Dose 20 MG; Start 09/04/16 at 21:00 Carvedilol (Coreg) 6.25 mg BID PO Last administered on 09/06/16 08:02; Admin Dose 6.25 MG; Start 09/04/16 at 09:00 Metoprolol Succinate (Toprol Xl) 25 mg DAILY PO Last administered on 09/06/16 08:01; Admin Dose 25 MG; Start 09/04/16 at 09:00 Famotidine (Pepcid) 20 mg DAILY PO Last administered on 09/06/16 08:00; Admin Dose 20 MG; Start 09/05/16 at 09:00 Guaifenesin/ Codeine Phosphate (Robitussin Ac Liquid Cup) 10 ml Q4H PRN PO COUGH Last administered on 09/04/16 21:56; Admin Dose 10 ML; Start 09/04/16 at 16:00 Docusate Sodium (Colace) 100 mg BID PO Last administered on 09/06/16 08:00; Admin Dose 100 MG; Start 09/05/16 at 09:00 Magnesium Oxide (Mag-Ox 400) 400 mg BID PO Last administered on 09/06/16 08:00 ; Admin Dose 400 MG; Start 09/05/16 at 14:30 JESS BAHENA MD Sep 06, 2016 15:06
[2016-09-06 19:29] VITALS: BP 189/116; RESP 18
[2016-09-06] MEDS: ACETAMINOPHEN 325 MG TAB PO PRN (20:48)
[2016-09-06 20:52] VITALS: BP 170/80; PULSE 72; RESP 18
[2016-09-06] MEDS: ATORVASTATIN 20 MG TAB PO SCH (20:58)
[2016-09-06] MEDS ORDERED: SENNA TAB PO SCH (21:00)
[2016-09-06 22:00] VITALS: BP 150/65; PULSE 75; RESP 18
[2016-09-07 08:02] VITALS: BP 189/96; RESP 18
[2016-09-07] MEDS: HEPARIN 5,000 UNIT/0.5 ML VIAL SC SCH ×2 (09:00→21:00)
[2016-09-07] MEDS: MAGNESIUM OXIDE 400 MG TAB PO SCH ×2 (09:40→21:38)
[2016-09-07] MEDS: METOPROLOL (XL) 25 MG TAB PO SCH (09:41)
[2016-09-07] MEDS: FAMOTIDINE 20 MG TAB PO SCH (09:41)
[2016-09-07] MEDS: DOCUSATE SODIUM 100 MG CAP PO SCH (09:41)
[2016-09-07 09:44] VITALS: BP 175/116; PULSE 99
--- NOTE | 2016-09-07 11:11 | PN ---
Date/Time of Note Date/Time of Note DATE: 09/07/16 TIME: 11:07 Assessment/Plan VTE Prophylaxis VTE Prophylaxis Intervention: LMWH Lines/Catheters IV Catheter Type (from Nrs): Peripheral IV Urinary Cath still in place: Yes Reason Cath still needed: urinary retention Assessment/Plan Chief Complaint/Hosp Course S: 09/04 weak/ cranky/ wants to be left alone. Complains of pain dyspnea. Not oriented or not trying to answer present commands. Nonfocal. 09/05 "I broke my neck"... When..." I do not know". Did not have breakfast. Not oriented or not cooperating. Refused blood draws. No distress. 09/06 -worried about her hands. refused PT/OT; -pt state's, " I dont walk, why I need therapy for" 09/07- refused blood work/ vitals/ bladder scan. Potentially having urinary retention. Nonadherent recommend discharge. She may return should she choose to participate in her medical care. Did reinforce that there is progression of cervical stenosis and that her situation is grim. O: vss PE No pallor Reg Clear Bs+nt nd, no R/R/G Ext: Hypotonia but no edema. + contracture bilat upper ext A/P 1. ARF. Prerenal-resolved. Potential neurogenic bladder. Stable, medically cleared for discharge. 2. Hyperkalemia. DC ACEi 3. FTT. Placement issue. Potentially back home w supportive care. 4. Chr psychosis 5. Substance abuse/methamphetamine. 6. Tobacco abuse 7. Probable chr pain 8. Chr nonischemic cardiomyopathy. EF of 20%. 9. Chr pleural pericardial effusion due to #8. 10. Chr hepatitis C viremia? 11. Anemia 12. Htn 13. 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 15. Chr cervical stenosis. "Fracture." not a surgical candidate. Very symptomatic, but w nonadherence & no stability of her comorbidities, we cannot clear her for any surgery. High risk of demise, needs advanced care planning re- evaluated. 16. Chr right loculated pl effusion. No evidence of sepsis. Not a surgical candidate. 17. Urinary Retention. Neurogenic bladder? Ideally bladder training and straight cath as required but unfortunately she is nonadherent. Problems: Exam/Review of Systems Vital Signs Vitals Vital Signs Date Time Temp Pulse Resp B/P Pulse Ox O2 Delivery O2 Flow Rate FiO2 09/07/16 09:44 99 175/116 09/07/16 08:02 98.6 18 98 09/06/16 22:00 Room Air Intake and Output 09/06/16 09/06/16 09/07/16 15:00 23:00 07:00 Intake Total 360 ml 200 ml Output Total 400 ml 300 ml 400 ml Balance -400 ml 60 ml -200 ml Results Result Diagram: 09/05/16 1753 09/06/16 0500 Medications Medications Current Medications Ondansetron HCl (Zofran Inj) 4 mg Q6H PRN IV NAUSEA AND/OR VOMITING; Start 04/12 at 00:30 Heparin Sodium (Porcine) (Heparin (5000 Units/0.5 ml)) 5,000 unit BID SC Last administered on 09/06/16 21:00; Admin Dose 5,000 UNIT; Start 09/04/16 at 09:00 Acetaminophen (Tylenol Tab) 650 mg Q6H PRN PO PAIN AND OR ELEVATED TEMP Last administered on 09/06/16 20:48; Admin Dose 650 MG; Start 09/04/16 at 00:30 Atorvastatin Calcium (Lipitor) 20 mg HS PO Last administered on 09/06/16 20:58 ; Admin Dose 20 MG; Start 09/04/16 at 21:00 Carvedilol (Coreg) 6.25 mg BID PO Last administered on 09/07/16 09:41; Admin Dose 6.25 MG; Start 09/04/16 at 09:00 Metoprolol Succinate (Toprol Xl) 25 mg DAILY PO Last administered on 09/07/16 09:41; Admin Dose 25 MG; Start 09/04/16 at 09:00 Famotidine (Pepcid) 20 mg DAILY PO Last administered on 09/07/16 09:41; Admin Dose 20 MG; Start 09/05/16 at 09:00 Guaifenesin/ Codeine Phosphate (Robitussin Ac Liquid Cup) 10 ml Q4H PRN PO COUGH Last administered on 09/04/16 21:56; Admin Dose 10 ML; Start 09/04/16 at 16:00 Docusate Sodium (Colace) 100 mg BID PO Last administered on 09/07/16 09:41; Admin Dose 100 MG; Start 09/05/16 at 09:00 Magnesium Oxide (Mag-Ox 400) 400 mg BID PO Last administered on 09/07/16 09:40 ; Admin Dose 400 MG; Start 09/05/16 at 14:30 Senna (Senokot) 2 tab HS PO Last administered on 09/06/16 20:48; Admin Dose 2 TAB; Start 09/06/16 at 21:00 JESS BAHENA MD Sep 07, 2016 11:11
[2016-09-07 12:37] LABS: CALCIUM 10.2 mg/dl (8.4-10.2); CREATININE 0.96 mg/dl (0.44-1.00); MAGNESIUM 2.3 mg/dl (1.7-2.5); POTASSIUM 4.6 mmol/L (3.5-5.1)
[2016-09-07 19:47] VITALS: BP 135/90; RESP 16
[2016-09-07] MEDS: ATORVASTATIN 20 MG TAB PO SCH (21:37)
[2016-09-07] MEDS: SENNA/DOCUSATE NA (8.6MG/50MG) TAB PO SCH (21:38)
[2016-09-07] MEDS: ACETAMINOPHEN 325 MG TAB PO PRN (21:42)
[2016-09-08 07:36] VITALS: BP 145/91; RESP 18
[2016-09-08] MEDS: HEPARIN 5,000 UNIT/0.5 ML VIAL SC SCH ×2 (09:00→20:57)
[2016-09-08] MEDS: MAGNESIUM OXIDE 400 MG TAB PO SCH ×2 (09:03→20:55)
[2016-09-08] MEDS: METOPROLOL (XL) 25 MG TAB PO SCH (09:03)
[2016-09-08] MEDS: FAMOTIDINE 20 MG TAB PO SCH (09:03)
--- NOTE | 2016-09-08 15:06 | PN ---
Date/Time of Note Date/Time of Note DATE: 09/08/16 TIME: 15:05 Assessment/Plan VTE Prophylaxis VTE Prophylaxis Intervention: LMWH Lines/Catheters IV Catheter Type (from Nrs): Saline Lock Urinary Cath still in place: Yes Reason Cath still needed: urinary retention Assessment/Plan Chief Complaint/Hosp Course S: 09/04 weak/ cranky/ wants to be left alone. Complains of pain dyspnea. Not oriented or not trying to answer present commands. Nonfocal. 09/05 "I broke my neck"... When..." I do not know". Did not have breakfast. Not oriented or not cooperating. Refused blood draws. No distress. 09/06 -worried about her hands. refused PT/OT; -pt state's, " I dont walk, why I need therapy for" 09/07- refused blood work/ vitals/ bladder scan. Potentially having urinary retention. Nonadherent recommend discharge. She may return should she choose to participate in her medical care. Did reinforce that there is progression of cervical stenosis and that her situation is grim. 09/08-no events. Pending placement. O: vss PE No pallor Reg Clear Bs+nt nd, no R/R/G Ext: Hypotonia but no edema. + contracture bilat upper ext A/P 1. ARF. Prerenal-resolved. Potential neurogenic bladder. Stable, medically cleared for discharge. 2. Hyperkalemia. DC ACEi 3. FTT. Placement issue. Potentially back home w supportive care. 4. Chr psychosis 5. Substance abuse/methamphetamine. 6. Tobacco abuse 7. Probable chr pain 8. Chr nonischemic cardiomyopathy. EF of 20%. 9. Chr pleural pericardial effusion; due to #8? 10. Chr hepatitis C viremia? 11. Anemia 12. Htn 13. Dyslipidemia 14. Chr LV thrombus. Stable follow. 15. Chr cervical stenosis. "Fracture." not a surgical candidate. Very symptomatic, but w nonadherence & no stability of her comorbidities, we cannot clear her for any surgery. High risk of demise, needs advanced care planning re- evaluated. 16. Chr right loculated pl effusion. No evidence of sepsis. Not a surgical candidate. 17. Urinary Retention. Neurogenic bladder? Ideally bladder training and straight cath as required but unfortunately she is nonadherent. Problems: Exam/Review of Systems Vital Signs Vitals Vital Signs Date Time Temp Pulse Resp B/P Pulse Ox O2 Delivery O2 Flow Rate FiO2 09/08/16 07:36 98.8 78 18 145/91 98 09/06/16 22:00 Room Air Intake and Output 09/07/16 09/07/16 09/08/16 15:00 23:00 07:00 Intake Total 300 ml 400 ml Output Total 500 ml 200 ml Balance -200 ml 200 ml Results Result Diagram: 09/05/16 1753 09/07/16 1200 Medications Medications Current Medications Ondansetron HCl (Zofran Inj) 4 mg Q6H PRN IV NAUSEA AND/OR VOMITING; Start 04/12 at 00:30 Heparin Sodium (Porcine) (Heparin (5000 Units/0.5 ml)) 5,000 unit BID SC Last administered on 09/06/16 21:00; Admin Dose 5,000 UNIT; Start 09/04/16 at 09:00 Acetaminophen (Tylenol Tab) 650 mg Q6H PRN PO PAIN AND OR ELEVATED TEMP Last administered on 09/07/16 21:42; Admin Dose 650 MG; Start 09/04/16 at 00:30 Atorvastatin Calcium (Lipitor) 20 mg HS PO Last administered on 09/07/16 21:37 ; Admin Dose 20 MG; Start 09/04/16 at 21:00 Carvedilol (Coreg) 6.25 mg BID PO Last administered on 09/08/16 09:02; Admin Dose 6.25 MG; Start 09/04/16 at 09:00 Metoprolol Succinate (Toprol Xl) 25 mg DAILY PO Last administered on 09/08/16 09:03; Admin Dose 25 MG; Start 09/04/16 at 09:00 Famotidine (Pepcid) 20 mg DAILY PO Last administered on 09/08/16 09:03; Admin Dose 20 MG; Start 09/05/16 at 09:00 Guaifenesin/ Codeine Phosphate (Robitussin Ac Liquid Cup) 10 ml Q4H PRN PO COUGH Last administered on 09/04/16 21:56; Admin Dose 10 ML; Start 09/04/16 at 16:00 Magnesium Oxide (Mag-Ox 400) 400 mg BID PO Last administered on 09/08/16 09:03 ; Admin Dose 400 MG; Start 09/05/16 at 14:30 Senna/Docusate Sodium (Senokot-S) 2 tab HS PO Last administered on 09/07/16t 21 :38; Admin Dose 2 TAB; Start 09/07/16 at 21:00 JESS BAHENA MD Sep 08, 2016 15:06
[2016-09-08 19:48] VITALS: BP 112/65; RESP 18
[2016-09-08] MEDS: SENNA/DOCUSATE NA (8.6MG/50MG) TAB PO SCH (20:54)
[2016-09-08] MEDS: GABAPENTIN 100 MG CAP PO SCH (20:55)
[2016-09-08] MEDS: ATORVASTATIN 20 MG TAB PO SCH (20:55)
[2016-09-09 07:25] VITALS: BP 128/68; RESP 18
[2016-09-09] MEDS: METOPROLOL (XL) 25 MG TAB PO SCH (08:45)
[2016-09-09] MEDS: FAMOTIDINE 20 MG TAB PO SCH (08:45)
[2016-09-09] MEDS: MAGNESIUM OXIDE 400 MG TAB PO SCH ×2 (08:45→22:37)
[2016-09-09] MEDS: GABAPENTIN 100 MG CAP PO SCH ×3 (08:45→22:37)
[2016-09-09] MEDS: HEPARIN 5,000 UNIT/0.5 ML VIAL SC SCH ×2 (08:46→21:00)
--- NOTE | 2016-09-09 18:12 | PN ---
Date/Time of Note Date/Time of Note DATE: 09/09/16 TIME: 18:10 Assessment/Plan VTE Prophylaxis VTE Prophylaxis Intervention: LMWH (Unfortunately refused.) Lines/Catheters IV Catheter Type (from Nrsg): Saline Lock Urinary Cath still in place: Yes Reason Cath still needed: urinary retention Assessment/Plan Chief Complaint/Hosp Course S: 09/04 weak/ cranky/ wants to be left alone. Complains of pain dyspnea. Not oriented or not trying to answer present commands. Nonfocal. 09/05 "I broke my neck"... When..." I do not know". Did not have breakfast. Not oriented or not cooperating. Refused blood draws. No distress. 09/06 -worried about her hands. refused PT/OT; -pt state's, " I dont walk, why I need therapy for" 09/07- refused blood work/ vitals/ bladder scan. Potentially having urinary retention. Nonadherent recommend discharge. She may return should she choose to participate in her medical care. Did reinforce that there is progression of cervical stenosis and that her situation is grim. 09/08-no events. Pending placement. 09/09 no events. Nonadherent refuses IV access. Refuses labs. Ready for discharge. O: vss PE No pallor Reg Clear Bs+nt nd, no R/R/G Ext: Hypotonia but no edema. + contracture bilat upper ext A/P 1. ARF. Prerenal-resolved. Potential neurogenic bladder. Stable, medically cleared for discharge. 2. Hyperkalemia. DCed ACEi 3. FTT. Placement issue. Potentially back home w supportive care. 4. Chr psychosis 5. Substance abuse/methamphetamine. 6. Tobacco abuse 7. Probable chr pain 8. Chr nonischemic cardiomyopathy. EF of 20%. 9. Chr pleural pericardial effusion; due to #8? 10. Chr hepatitis C viremia? 11. Anemia 12. Htn 13. Dyslipidemia 14. Chr LV thrombus. Stable follow. 15. Chr cervical stenosis. "Fracture." not a surgical candidate. Try neurontin. Very symptomatic, but w nonadherence & no stability of her comorbidities, we cannot clear her for any surgery. High risk of demise, needs advanced care planning re-evaluated. 16. Chr Rt loculated pl effusion. No evidence of sepsis. Not a surgical candidate. 17. Urinary Retention. Neurogenic bladder? Ideally bladder training and straight cath as required but unfortunately she is nonadherent. Problems: Exam/Review of Systems Vital Signs Vitals Vital Signs Date Time Temp Pulse Resp B/P Pulse Ox O2 Delivery O2 Flow Rate FiO2 09/09/16 07:25 98.4 60 18 128/68 100 09/06/16 22:00 Room Air Intake and Output 09/08/16 09/08/16 09/09/16 15:00 23:00 07:00 Intake Total 240 ml Output Total 100 ml Balance 140 ml Results Result Diagram: 09/05/16 1753 09/07/16 1200 Medications Medications Current Medications Ondansetron HCl (Zofran Inj) 4 mg Q6H PRN IV NAUSEA AND/OR VOMITING; Start 04/12 at 00:30 Heparin Sodium (Porcine) (Heparin (5000 Units/0.5 ml)) 5,000 unit BID SC Last administered on 09/06/16 21:00; Admin Dose 5,000 UNIT; Start 09/04/16 at 09:00 Acetaminophen (Tylenol Tab) 650 mg Q6H PRN PO PAIN AND OR ELEVATED TEMP Last administered on 09/07/16 21:42; Admin Dose 650 MG; Start 09/04/16 at 00:30 Atorvastatin Calcium (Lipitor) 20 mg HS PO Last administered on 09/08/16 20:55 ; Admin Dose 20 MG; Start 09/04/16 at 21:00 Carvedilol (Coreg) 6.25 mg BID PO Last administered on 09/09/16 08:45; Admin Dose 6.25 MG; Start 09/04/16 at 09:00 Metoprolol Succinate (Toprol Xl) 25 mg DAILY PO Last administered on 09/09/16 08:45; Admin Dose 25 MG; Start 09/04/16 at 09:00 Famotidine (Pepcid) 20 mg DAILY PO Last administered on 09/09/16 08:45; Admin Dose 20 MG; Start 09/05/16 at 09:00 Guaifenesin/ Codeine Phosphate (Robitussin Ac Liquid Cup) 10 ml Q4H PRN PO COUGH Last administered on 09/04/16 21:56; Admin Dose 10 ML; Start 09/04/16 at 16:00 Magnesium Oxide (Mag-Ox 400) 400 mg BID PO Last administered on 09/09/16 08:45 ; Admin Dose 400 MG; Start 09/05/16 at 14:30 Senna/Docusate Sodium (Senokot-S) 2 tab HS PO Last administered on 09/08/16 20 :54; Admin Dose 2 TAB; Start 09/07/16 at 21:00 Gabapentin (Neurontin) 200 mg TID PO Last administered on 09/09/16 13:13; Admin Dose 200 MG; Start 09/08/16 at 21:00 JESS BAHENA MD Sep 09, 2016 18:12
[2016-09-09 19:00] VITALS: BP 111/60; RESP 16
[2016-09-09] MEDS: SENNA/DOCUSATE NA (8.6MG/50MG) TAB PO SCH (22:37)
[2016-09-09] MEDS: ATORVASTATIN 20 MG TAB PO SCH (22:37)
[2016-09-10] MEDS: ACETAMINOPHEN 325 MG TAB PO PRN ×2 (02:24→17:46)
[2016-09-10 08:09] VITALS: BP 117/72; RESP 18
[2016-09-10] MEDS: HEPARIN 5,000 UNIT/0.5 ML VIAL SC SCH ×2 (09:00→20:25)
[2016-09-10] MEDS: FAMOTIDINE 20 MG TAB PO SCH (09:40)
[2016-09-10] MEDS: GABAPENTIN 100 MG CAP PO SCH ×3 (09:40→20:24)
[2016-09-10] MEDS: MAGNESIUM OXIDE 400 MG TAB PO SCH ×2 (09:40→20:24)
[2016-09-10] MEDS: METOPROLOL (XL) 25 MG TAB PO SCH (09:41)
--- NOTE | 2016-09-10 11:39 | PN ---
DATE: 09/10/2016 T MICHAEL OF EVALUATION: 10 a.m. SUBJECTIVE DATA: Complains of left shoulder pain of sudden onset. OBJECTIVE DATA: VITAL SIGNS: Temperature 97.5, pulse rate 72, respiratory rate 18, blood pressure 117/72, oxygen saturation 97% on room air. GENERAL: This is a thin, frail-looking female lying in bed in no apparent distress. HEENT: Normocephalic and atraumatic. Eyes: Anicteric sclerae. Conjunctivae clear. ENT: Nasal septum is midline. Oral mucosa is moist. NECK: Supple. No JVD noticed. RESPIRATORY: Bilaterally clear to auscultation. No adventitious breath sounds heard. No use of accessory muscles of respiration. CARDIAC: Regular rate and rhythm with a grade II/ systolic ejection murmur. ABDOMEN: Soft, nontender and nondistended. Bowel sounds positive in all 4 quadrants. GENITOURINARY: Deferred. EXTREMITIES: No cyanosis, no clubbing, no edema. Peripheral pulses palpable. NEUROLOGIC: The patient is awake, alert and oriented. Cranial nerves are grossly intact. LABORATORY AND DIAGNOSTIC DATA: WBC 6.0, hemoglobin 11.5, hematocrit 35.2, platelet count 237. Sodium 139, potassium 4.6, chloride 103, carbon dioxide 28 , anion gap 13, BUN 21, creatinine 0.96, glucose 137, calcium 10.2, magnesium 2.3. ASSESSMENT AND PLAN: 1. Acute kidney injury with underlying hyperkalemia. Resolved after the patient has been taken off GELACIO inhibitors. Acute kidney injury, most probably secondary to hemodynamic causes Vs from the use of GELACIO inhibitors. 2. Ischemic cardiomyopathy with ejection fraction of 25%. Continue beta blockers. Unable to use GELACIO inhibitors because of underlying worsening renal function. 3. Methamphetamine abuse. Cessation advised. caseworker on the case. 4. Pulmonary hypertension. PA pressure of 39 mmHg as per 2D echocardiogram. Continue supplemental oxygen. 5. Possible left ventricular thrombus. Stable. The patient is not an ideal candidate for anticoagulation because of noncompliance. 6. Chronic cervical stenosis. Continue pain medications. The patient is not an ideal candidate for any kind of surgical intervention. 7. Chronic right-sided pleural effusion. No evidence of sepsis or pleural effusion on the latest CXR. 8. Essential hypertension. Continue antihypertensives. 9. Dyslipidemia. Continue statins. 10. Chronic psychosis. Continue antipsychotics. 11. Fluid, electrolytes and nutrition. Low potassium, low cholesterol diet. 12. Deep venous thrombosis prophylaxis. SQ heparin. 13. Gastrointestinal prophylaxis. Histamine 2 receptor blockers. 14. Plan. The patient is medically stable for discharge. However, the patient is awaiting placement. caseworker and case management aware. Case discussed with Dr. Rodriguez. ROB RODRIGUEZ MD, AM/ROMINA Conf#: [id number] DID#: [id number] MTDD
--- NOTE | 2016-09-10 13:07 | RADRPT ---
PROCEDURE: XR Left Shoulder. CLINICAL INDICATION: Left shoulder pain. TECHNIQUE: Three views. Frontal internal rotation, frontal external rotation, and scapular Y-view . COMPARISON: No prior study is available for comparison. FINDINGS: There is no fracture or dislocation. The soft tissues are normal. Articular surfaces are intact. There is no lytic or blastic lesion. There is no radiopaque foreign body. IMPRESSION: 1. Normal images of the left shoulder. RPTAT: QQ .Otoniel Magana MD, MD Date Time Electronically viewed and signed by .Otoniel Magana MD, MD on 09/10/2016 13:07 .R/
[2016-09-10] MEDS: ATORVASTATIN 20 MG TAB PO SCH (20:23)
[2016-09-10] MEDS: SENNA/DOCUSATE NA (8.6MG/50MG) TAB PO SCH (20:24)
[2016-09-10 21:07] VITALS: BP 126/74; RESP 20
[2016-09-11 08:33] VITALS: BP 131/74; RESP 16
[2016-09-11] MEDS: MAGNESIUM OXIDE 400 MG TAB PO SCH ×2 (10:03→21:10)
[2016-09-11] MEDS: FAMOTIDINE 20 MG TAB PO SCH (10:03)
[2016-09-11] MEDS: GABAPENTIN 100 MG CAP PO SCH ×3 (10:03→21:10)
[2016-09-11] MEDS: HEPARIN 5,000 UNIT/0.5 ML VIAL SC SCH ×2 (10:08→21:00)
--- NOTE | 2016-09-11 13:48 | PN ---
Date/Time of Note Date/Time of Note DATE: 09/11/16 TIME: 13:38 Assessment/Plan VTE Prophylaxis VTE Prophylaxis Intervention: heparin, other (pt has been refusing) Lines/Catheters [facility] Saline Lock Urinary Cath still in place: Yes Assessment/Plan Assessment/Plan 1. Acute Renal Insufficiency: resolved - Renal u/s on admission was unremarkable. Pt however is Oliguric and voided only 120cc overnight. Bladder is not distended - plan is to eval with bladder scanner and will check BMP in am if pt is willing. Last lab about a week ago. 2. Chronic cervical stenosis. Continue pain medications. The patient is not an ideal candidate for any kind of surgical intervention. 3. Chronic right pleural effusion (unchanged) and Chronic pericardial effusion (recently case was discussed with Dr. Becerra on previous admission and determined no need for repeat Echo). Continue current management 4. Known left ventricular thrombus. - On previous admission, she was on Lovenox treatment dose, but had been refusing on/off previously and I believe has not been taking anti-coag at home. - pt is considered not a good candidate for anticoagulation and she also has been refusing even SubQ heparin now. 5. Hyperkalemia, resolved. Continue Lasix and Aldactone. Stable on current dose of diuretics. Follow up BMP and mag today 6. Hx of psychiatric Illness: cont meds 7. Tobacco use. Continue nicotine patch. 8. placement: SW on the case Subjective 24 Hr Interval Summary Free Text/Dictation no distress Exam/Review of Systems Vital Signs Vitals Vital Signs Date Time Temp Pulse Resp B/P Pulse Ox O2 Delivery O2 Flow Rate FiO2 09/11/16 08:33 98.4 72 16 131/74 100 Intake and Output 09/10/16 09/10/16 09/11/16 15:00 23:00 07:00 Intake Total 700 ml Output Total 350 ml Balance 350 ml Exam Constitutional: other (sleepy, but arousable. Thinly build and weak-appearing) Head: atraumatic, normocephalic Eyes: EOMI, PERRL Respiratory: diminished breath sounds Cardiovascular: regular rate and rhythm, systolic murmur Gastrointestinal: non-tender, soft Extremities: normal pulses Results Result Diagram: 09/07/16 1200 Medications Medications Current Medications Ondansetron HCl (Zofran Inj) 4 mg Q6H PRN IV NAUSEA AND/OR VOMITING; Start 04/12 at 00:30 Heparin Sodium (Porcine) (Heparin (5000 Units/0.5 ml)) 5,000 unit BID SC Last administered on 09/11/16 10:08; Admin Dose 5,000 UNIT; Start 09/04/16 at 09:00 Acetaminophen (Tylenol Tab) 650 mg Q6H PRN PO PAIN AND OR ELEVATED TEMP Last administered on 09/10/16 17:46; Admin Dose 650 MG; Start 09/04/16 at 00:30 Atorvastatin Calcium (Lipitor) 20 mg HS PO Last administered on 09/10/16 20:23 ; Admin Dose 20 MG; Start 09/04/16 at 21:00 Carvedilol (Coreg) 6.25 mg BID PO Last administered on 09/11/16 10:04; Admin Dose 6.25 MG; Start 09/04/16 at 09:00 Famotidine (Pepcid) 20 mg DAILY PO Last administered on 09/11/16 10:03; Admin Dose 20 MG; Start 09/05/16 at 09:00 Guaifenesin/ Codeine Phosphate (Robitussin Ac Liquid Cup) 10 ml Q4H PRN PO COUGH Last administered on 09/04/16 21:56; Admin Dose 10 ML; Start 09/04/16 at 16:00 Magnesium Oxide (Mag-Ox 400) 400 mg BID PO Last administered on 09/11/16 10:03 ; Admin Dose 400 MG; Start 09/05/16 at 14:30 Senna/Docusate Sodium (Senokot-S) 2 tab HS PO Last administered on 09/10/16 20 :24; Admin Dose 2 TAB; Start 09/07/16 at 21:00 Gabapentin (Neurontin) 200 mg TID PO Last administered on 09/11/16 13:22; Admin Dose 200 MG; Start 09/08/16 at 21:00 ANGEL PRIETO MD Sep 11, 2016 13:48
[2016-09-11] MEDS: ACETAMINOPHEN 325 MG TAB PO PRN (16:21)
[2016-09-11 19:00] VITALS: BP 109/73; RESP 18
[2016-09-11] MEDS: ATORVASTATIN 20 MG TAB PO SCH (21:09)
[2016-09-11] MEDS: SENNA/DOCUSATE NA (8.6MG/50MG) TAB PO SCH (21:10)
--- NOTE | 2016-09-12 07:26 | PN ---
Date/Time of Note Date/Time of Note DATE: 09/12/16 TIME: 07:25 Assessment/Plan VTE Prophylaxis VTE Prophylaxis Intervention: heparin Lines/Catheters IV [facility] Saline Lock Urinary Cath still in place: Yes Reason Cath still needed: other (indicate) Assessment/Plan Chief Complaint/Hosp Course 1. Acute kidney injury with underlying hyperkalemia. Resolved after the patient has been taken off GELACIO inhibitors. Acute kidney injury, most probably secondary to hemodynamic causes Vs from the use of GELACIO inhibitors. 2. Ischemic cardiomyopathy with ejection fraction of 25%. Continue beta blockers. Unable to use GELACIO inhibitors because of underlying worsening renal function. 3. Methamphetamine abuse. Cessation advised. pediatric social worker on the case. 4. Pulmonary hypertension. PA pressure of 39 mmHg as per 2D echocardiogram. Continue supplemental oxygen. 5. Possible left ventricular thrombus. Stable. The patient is not an ideal candidate for anticoagulation because of noncompliance. 6. Chronic cervical stenosis. Continue pain medications. The patient is not an ideal candidate for any kind of surgical intervention. 7. Chronic right-sided pleural effusion. No evidence of sepsis. 8. Essential hypertension. Continue antihypertensives. 9. Dyslipidemia. Continue statins. 10. Chronic psychosis. Continue antipsychotics. 11. Fluid, electrolytes and nutrition. Low potassium, low cholesterol diet. 12. Deep venous thrombosis prophylaxis. SQ heparin. 13. Gastrointestinal prophylaxis. Histamine 2 receptor blockers. 14. Plan. The patient is medically stable for discharge. However, the patient is awaiting placement. pediatric social worker and case management aware. Case discussed with Dr. Yoo. Problems: Subjective 24 Hr Interval Summary Free Text/Dictation No changes in status. Exam/Review of Systems Vital Signs Vitals Vital Signs Date Time Temp Pulse Resp B/P Pulse Ox O2 Delivery O2 Flow Rate FiO2 09/11/16 19:00 98.6 69 18 109/73 98 Intake and Output 09/11/16 09/11/16 09/12/16 15:00 23:00 07:00 Intake Total 240 ml 600 ml 420 ml Output Total 800 ml 550 ml 1100 ml Balance -560 ml 50 ml -680 ml Exam GENERAL: This is a thin, frail-looking female lying in bed in no apparent distress. HEENT: Normocephalic and atraumatic. Eyes: Anicteric sclerae. Conjunctivae clear. ENT: Nasal septum is midline. Oral mucosa is moist. NECK: Supple. No JVD noticed. RESPIRATORY: Bilaterally clear to auscultation. No adventitious breath sounds heard. No use of accessory muscles of respiration. CARDIAC: Regular rate and rhythm with a grade II/ systolic ejection murmur. ABDOMEN: Soft, nontender and nondistended. Bowel sounds positive in all 4 quadrants. GENITOURINARY: Deferred. EXTREMITIES: No cyanosis, no clubbing, no edema. Peripheral pulses palpable. NEUROLOGIC: The patient is awake, alert and oriented. Cranial nerves are grossly intact. Medications Medications Current Medications Ondansetron HCl (Zofran Inj) 4 mg Q6H PRN IV NAUSEA AND/OR VOMITING; Start 04/12 at 00:30 Heparin Sodium (Porcine) (Heparin (5000 Units/0.5 ml)) 5,000 unit BID SC Last administered on 09/11/16 10:08; Admin Dose 5,000 UNIT; Start 09/04/16 at 09:00 Acetaminophen (Tylenol Tab) 650 mg Q6H PRN PO PAIN AND OR ELEVATED TEMP Last administered on 09/11/16 16:21; Admin Dose 650 MG; Start 09/04/16 at 00:30 Atorvastatin Calcium (Lipitor) 20 mg HS PO Last administered on 09/11/16 21:09 ; Admin Dose 20 MG; Start 09/04/16 at 21:00 Carvedilol (Coreg) 6.25 mg BID PO Last administered on 09/11/16 21:11; Admin Dose 6.25 MG; Start 09/04/16 at 09:00 Famotidine (Pepcid) 20 mg DAILY PO Last administered on 09/11/16 10:03; Admin Dose 20 MG; Start 09/05/16 at 09:00 Guaifenesin/ Codeine Phosphate (Robitussin Ac Liquid Cup) 10 ml Q4H PRN PO COUGH Last administered on 09/04/16 21:56; Admin Dose 10 ML; Start 09/04/16 at 16:00 Magnesium Oxide (Mag-Ox 400) 400 mg BID PO Last administered on 09/11/16 21:10 ; Admin Dose 400 MG; Start 09/05/16 at 14:30 Senna/Docusate Sodium (Senokot-S) 2 tab HS PO Last administered on 09/11/16 21 :10; Admin Dose 2 TAB; Start 09/07/16 at 21:00 Gabapentin (Neurontin) 200 mg TID PO Last administered on 09/11/16t 21:10; Admin Dose 200 MG; Start 09/08/16 at 21:00 ROB BAUTISTA NP Sep 12, 2016 07:26
[2016-09-12 07:59] VITALS: BP 141/81; RESP 18
[2016-09-12] MEDS: MAGNESIUM OXIDE 400 MG TAB PO SCH ×2 (08:32→21:44)
[2016-09-12] MEDS: GABAPENTIN 100 MG CAP PO SCH ×3 (08:32→21:44)
[2016-09-12] MEDS: HEPARIN 5,000 UNIT/0.5 ML VIAL SC SCH ×2 (08:32→21:00)
[2016-09-12] MEDS: FAMOTIDINE 20 MG TAB PO SCH (08:32)
[2016-09-12] MEDS: ACETAMINOPHEN 325 MG TAB PO PRN (08:56)
[2016-09-12 20:38] VITALS: BP 142/77; RESP 18
[2016-09-12] MEDS: ATORVASTATIN 20 MG TAB PO SCH (21:44)
[2016-09-12] MEDS: SENNA/DOCUSATE NA (8.6MG/50MG) TAB PO SCH (21:44)
--- NOTE | 2016-09-13 07:15 | PN ---
Date/Time of Note Date/Time of Note DATE: 09/13/16 TIME: 07:15 Assessment/Plan VTE Prophylaxis VTE Prophylaxis Intervention: heparin Lines/Catheters IV [facility] Saline Lock Urinary Cath still in place: Yes Reason Cath still needed: urinary retention Assessment/Plan Chief Complaint/Hosp Course 1. Acute kidney injury with underlying hyperkalemia. Resolved after the patient has been taken off GELACIO inhibitors. Acute kidney injury, most probably secondary to hemodynamic causes Vs from the use of GELACIO inhibitors. 2. Ischemic cardiomyopathy with ejection fraction of 25%. Continue beta blockers. Unable to use GELACIO inhibitors because of underlying worsening renal function. 3. Methamphetamine abuse. Cessation advised. community support worker on the case. 4. Pulmonary hypertension. PA pressure of 39 mmHg as per 2D echocardiogram. Continue supplemental oxygen. 5. Possible left ventricular thrombus. Stable. The patient is not an ideal candidate for anticoagulation because of noncompliance. 6. Chronic cervical stenosis. Continue pain medications. The patient is not an ideal candidate for any kind of surgical intervention. 7. Chronic right-sided pleural effusion. No evidence of sepsis. 8. Essential hypertension. Continue antihypertensives. 9. Dyslipidemia. Continue statins. 10. Chronic psychosis. Continue antipsychotics. 11. Fluid, electrolytes and nutrition. Low potassium, low cholesterol diet. 12. Deep venous thrombosis prophylaxis. SQ heparin. 13. Gastrointestinal prophylaxis. Histamine 2 receptor blockers. 14. Plan. The patient is medically stable for discharge. However, the patient is awaiting placement. community support worker and case management aware. Case discussed with Dr. Yoo. Problems: Subjective 24 Hr Interval Summary Free Text/Dictation No changes in status. Exam/Review of Systems Vital Signs Vitals Vital Signs Date Time Temp Pulse Resp B/P Pulse Ox O2 Delivery O2 Flow Rate FiO2 09/12/16 20:38 97.4 83 18 142/77 99 Intake and Output 09/12/16 09/12/16 09/13/16 15:00 23:00 07:00 Intake Total 720 ml Output Total 300 ml Balance 420 ml Exam GENERAL: This is a thin, frail-looking female lying in bed in no apparent distress. HEENT: Normocephalic and atraumatic. Eyes: Anicteric sclerae. Conjunctivae clear. ENT: Nasal septum is midline. Oral mucosa is moist. NECK: Supple. No JVD noticed. RESPIRATORY: Bilaterally clear to auscultation. No adventitious breath sounds heard. No use of accessory muscles of respiration. CARDIAC: Regular rate and rhythm with a grade II/ systolic ejection murmur. ABDOMEN: Soft, nontender and nondistended. Bowel sounds positive in all 4 quadrants. GENITOURINARY: Deferred. EXTREMITIES: No cyanosis, no clubbing, no edema. Peripheral pulses palpable. NEUROLOGIC: The patient is awake, alert and oriented. Cranial nerves are grossly intact. Medications Medications Current Medications Ondansetron HCl (Zofran Inj) 4 mg Q6H PRN IV NAUSEA AND/OR VOMITING; Start 04/12 at 00:30 Heparin Sodium (Porcine) (Heparin (5000 Units/0.5 ml)) 5,000 unit BID SC Last administered on 09/11/16 10:08; Admin Dose 5,000 UNIT; Start 09/04/16 at 09:00 Acetaminophen (Tylenol Tab) 650 mg Q6H PRN PO PAIN AND OR ELEVATED TEMP Last administered on 09/12/16 08:56; Admin Dose 650 MG; Start 09/04/16 at 00:30 Atorvastatin Calcium (Lipitor) 20 mg HS PO Last administered on 09/12/16 21:44 ; Admin Dose 20 MG; Start 09/04/16 at 21:00 Carvedilol (Coreg) 6.25 mg BID PO Last administered on 09/12/16 21:44; Admin Dose 6.25 MG; Start 09/04/16 at 09:00 Famotidine (Pepcid) 20 mg DAILY PO Last administered on 09/12/16 08:32; Admin Dose 20 MG; Start 09/05/16 at 09:00 Guaifenesin/ Codeine Phosphate (Robitussin Ac Liquid Cup) 10 ml Q4H PRN PO COUGH Last administered on 09/04/16 21:56; Admin Dose 10 ML; Start 09/04/16 at 16:00 Magnesium Oxide (Mag-Ox 400) 400 mg BID PO Last administered on 09/12/16 21:44 ; Admin Dose 400 MG; Start 09/05/16 at 14:30 Senna/Docusate Sodium (Senokot-S) 2 tab HS PO Last administered on 09/12/16 21 :44; Admin Dose 2 TAB; Start 09/07/16 at 21:00 Gabapentin (Neurontin) 200 mg TID PO Last administered on 09/12/16t 21:44; Admin Dose 200 MG; Start 09/08/16 at 21:00 ROB BAUTISTA NP Sep 13, 2016 07:15
[2016-09-13 08:07] VITALS: BP 132/88; RESP 16
[2016-09-13] MEDS: MAGNESIUM OXIDE 400 MG TAB PO SCH ×2 (08:32→20:11)
[2016-09-13] MEDS: FAMOTIDINE 20 MG TAB PO SCH (08:33)
[2016-09-13] MEDS: GABAPENTIN 100 MG CAP PO SCH ×3 (08:33→20:11)
[2016-09-13] MEDS: HEPARIN 5,000 UNIT/0.5 ML VIAL SC SCH ×2 (08:34→20:12)
[2016-09-13] MEDS: ACETAMINOPHEN 325 MG TAB PO PRN ×2 (14:32→20:12)
[2016-09-13] MEDS: SENNA/DOCUSATE NA (8.6MG/50MG) TAB PO SCH (20:11)
[2016-09-13] MEDS: ATORVASTATIN 20 MG TAB PO SCH (20:11)
[2016-09-13 20:26] VITALS: BP 136/79; RESP 18
[2016-09-13] MEDS ORDERED: HYDROmorphONE 2 MG TAB PO PRN (21:30)
[2016-09-13] MEDS: IBUPROFEN 800 MG TAB PO SCH ×2 (21:49→21:50)
[2016-09-14] MEDS: IBUPROFEN 800 MG TAB PO SCH (06:00)
[2016-09-14 06:27] LABS: ADD SCAN DIFF NO
[2016-09-14 06:53] LABS: CHLORIDE 101 mmol/L (97-110); SODIUM 140 mmol/L (135-144)
[2016-09-14 06:54] LABS: POTASSIUM 3.8 mmol/L (3.5-5.1)
[2016-09-14 06:56] LABS: ANION GAP 16 (8-16); BASOPHIL # 0.1 10^3/ul (0.0-0.1); BASOPHILS % 0.8 % (0.0-2.0); CARBON DIOXIDE 27 mmol/L (21-31); CREATININE 0.96 mg/dl (0.44-1.00); EOSINOPHILS # 0.3 10^3/ul (0.0-0.5); EOSINOPHILS % 3.9 % (0.0-7.0); HEMATOCRIT 33.1 % (37.0-47.0); HEMOGLOBIN 11.1 g/dl (12.0-16.0); LYMPHOCYTES # 1.9 10^3/ul (0.8-2.9); LYMPHOCYTES % 26.3 % (15.0-51.0); MEAN CORPUSCULAR HEMOGLOBIN 32.1 pg (29.0-33.0); MEAN CORPUSCULAR HGB CONC 33.5 g/dl (32.0-37.0); MEAN CORPUSCULAR VOLUME 95.7 fl (82.0-101.0); MEAN PLATELET VOLUME 11.2 fl (7.4-10.4); MONOCYTE # 0.8 10^3/ul (0.3-0.9); NEUTROPHIL # 4.1 10^3/ul (1.6-7.5); NEUTROPHILS % 57.4 % (39.0-77.0); PLATELET COUNT 300 10^3/UL (140-415); RED BLOOD COUNT 3.46 10^6/ul (4.20-5.40); RED CELL DISTRIBUTION WIDTH 12.9 % (11.5-14.5); WHITE BLOOD COUNT 7.2 10^3/ul (4.8-10.8)
[2016-09-14 06:57] LABS: BLOOD UREA NITROGEN 25 mg/dl (7-20); CALCIUM 9.9 mg/dl (8.4-10.2); GLUCOSE 116 mg/dl (70-220)
[2016-09-14 07:04] LABS: ETHANOL < 10.0 mg/dl
[2016-09-14 08:10] VITALS: BP 146/84; RESP 16
[2016-09-14] MEDS: MAGNESIUM OXIDE 400 MG TAB PO SCH (08:22)
[2016-09-14] MEDS: FAMOTIDINE 20 MG TAB PO SCH (08:22)
[2016-09-14] MEDS: GABAPENTIN 100 MG CAP PO SCH ×2 (08:22→13:59)
[2016-09-14] MEDS: HEPARIN 5,000 UNIT/0.5 ML VIAL SC SCH (08:23)
--- NOTE | 2016-09-14 10:08 | PN ---
Date/Time of Note Date/Time of Note DATE: 09/14/16 TIME: 10:04 Assessment/Plan VTE Prophylaxis VTE Prophylaxis Intervention: heparin Lines/Catheters IV C[facility]ter Type (from [facility] Saline Lock Urinary Cath still in place: Yes Reason Cath still needed: urinary retention Assessment/Plan Chief Complaint/Hosp Course 1. Acute kidney injury with underlying hyperkalemia. Resolved after the patient has been taken off GELACIO inhibitors. Acute kidney injury, most probably secondary to hemodynamic causes Vs from the use of GELACIO inhibitors. 2. Ischemic cardiomyopathy with ejection fraction of 25%. Continue beta blockers. Unable to use GELACIO inhibitors because of underlying worsening renal function. 3. Methamphetamine abuse. Cessation advised. 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 4. Pulmonary hypertension. PA pressure of 39 mmHg as per 2D echocardiogram. Continue supplemental oxygen. 5. Possible left ventricular thrombus. Stable. The patient is not an ideal candidate for anticoagulation because of noncompliance. 6. Chronic cervical stenosis. Continue pain medications. The patient is not an ideal candidate for any kind of surgical intervention. 7. Chronic right-sided pleural effusion. No evidence of sepsis. 8. Essential hypertension. Continue antihypertensives. 9. Dyslipidemia. Continue statins. 10. Chronic psychosis. Continue antipsychotics. 11. Fluid, electrolytes and nutrition. Low potassium, low cholesterol diet. 12. Deep venous thrombosis prophylaxis. SQ heparin. 13. Gastrointestinal prophylaxis. Histamine 2 receptor blockers. 14. Plan. The patient is medically stable for discharge. However, the patient is awaiting placement. reinforcing steel worker and case management aware. Case discussed with Dr. Deutsch. Problems: Subjective 24 Hr Interval Summary Free Text/Dictation The patient's boyfriend brought alcohol last night. But the patient's serum alcohol level not elevated. Exam/Review of Systems Vital Signs Vitals Vital Signs Date Time Temp Pulse Resp B/P Pulse Ox O2 Delivery O2 Flow Rate FiO2 09/14/16 08:10 99.2 77 16 146/84 09/13/16 20:26 98 09/13/16 20:00 Room Air Intake and Output 09/13/16 09/13/16 09/14/16 15:00 23:00 07:00 Intake Total 1500 ml 240 ml Output Total 600 ml 650 ml Balance 900 ml -410 ml Exam GENERAL: This is a thin, frail-looking female lying in bed in no apparent distress. HEENT: Normocephalic and atraumatic. Eyes: Anicteric sclerae. Conjunctivae clear. ENT: Nasal septum is midline. Oral mucosa is moist. NECK: Supple. No JVD noticed. RESPIRATORY: Bilaterally clear to auscultation. No adventitious breath sounds heard. No use of accessory muscles of respiration. CARDIAC: Regular rate and rhythm with a grade II/ systolic ejection murmur. ABDOMEN: Soft, nontender and nondistended. Bowel sounds positive in all 4 quadrants. GENITOURINARY: Deferred. EXTREMITIES: No cyanosis, no clubbing, no edema. Peripheral pulses palpable. NEUROLOGIC: The patient is awake, alert and oriented. Cranial nerves are grossly intact. Results Result Diagram: 09/14/16 0515 09/14/16 0515 Results 24 hrs Laboratory Tests Test 09/14/16 05:15 White Blood Count 7.2 Red Blood Count 3.46 L Hemoglobin 11.1 L Hematocrit 33.1 L Mean Corpuscular Volume 95.7 Mean Corpuscular Hemoglobin 32.1 Mean Corpuscular Hemoglobin Concent 33.5 Red Cell Distribution Width 12.9 Platelet Count 300 # Mean Platelet Volume 11.2 H Neutrophils % 57.4 Lymphocytes % 26.3 Monocytes % 11.0 Eosinophils % 3.9 Basophils % 0.8 Nucleated Red Blood Cells % 0.0 Neutrophils # 4.1 Lymphocytes # 1.9 Monocytes # 0.8 Eosinophils # 0.3 Basophils # 0.1 Nucleated Red Blood Cells # 0.0 Sodium Level 140 Potassium Level 3.8 Chloride Level 101 Carbon Dioxide Level 27 Anion Gap 16 Blood Urea Nitrogen 25 H Creatinine 0.96 Glucose Level 116 Calcium Level 9.9 Ethyl Alcohol Level < 10.0 Medications Medications Current Medications Ondansetron HCl (Zofran Inj) 4 mg Q6H PRN IV NAUSEA AND/OR VOMITING; Start 04/12 at 00:30 Heparin Sodium (Porcine) (Heparin (5000 Units/0.5 ml)) 5,000 unit BID SC Last administered on 09/11/16 10:08; Admin Dose 5,000 UNIT; Start 09/04/16 at 09:00 Acetaminophen (Tylenol Tab) 650 mg Q6H PRN PO PAIN AND OR ELEVATED TEMP Last administered on 09/13/16 20:12; Admin Dose 650 MG; Start 09/04/16 at 00:30 Atorvastatin Calcium (Lipitor) 20 mg HS PO Last administered on 09/13/16 20:11 ; Admin Dose 20 MG; Start 09/04/16 at 21:00 Carvedilol (Coreg) 6.25 mg BID PO Last administered on 09/14/16 08:22; Admin Dose 6.25 MG; Start 09/04/16 at 09:00 Famotidine (Pepcid) 20 mg DAILY PO Last administered on 09/14/16 08:22; Admin Dose 20 MG; Start 09/05/16 at 09:00 Guaifenesin/ Codeine Phosphate (Robitussin Ac Liquid Cup) 10 ml Q4H PRN PO COUGH Last administered on 09/04/16 21:56; Admin Dose 10 ML; Start 09/04/16 at 16:00 Magnesium Oxide (Mag-Ox 400) 400 mg BID PO Last administered on 09/14/16 08:22 ; Admin Dose 400 MG; Start 09/05/16 at 14:30 Senna/Docusate Sodium (Senokot-S) 2 tab HS PO Last administered on 09/13/16 20 :11; Admin Dose 2 TAB; Start 09/07/16 at 21:00 Gabapentin (Neurontin) 200 mg TID PO Last administered on 09/14/16 08:22; Admin Dose 200 MG; Start 09/08/16 at 21:00 Ibuprofen (Motrin) 800 mg Q8 PO Last administered on 09/13/16 21:49; Admin Dose 800 MG; Start 09/13/16 at 21:30 Hydromorphone HCl (Dilaudid) 0.5 mg Q4H PRN PO PAIN; Start 09/13/16 at 21:30 ROB BAUTISTA NP Sep 14, 2016 10:08
--- NOTE | 2016-09-14 11:10 | PDOCDIS ---
Discharge Instructions DIAGNOSIS Discharge Diagnosis: Acute kidney injury. Cardiomyopathy. Noncompliance. Substance abuse. CONDITION Patient Condition: Stable HOME CARE INSTRUCTIONS: Special Diet: Renal Diet FOLLOW UP/APPOINTMENTS Appointments Primo Monsalve MD Specialty: Internal Medicine Office Address: [address] [place], [place] [id number] Office OTHER ORDERS: Other Orders: 1. Take medications as per prescription. 2. Follow a low-cholesterol, low potassium diet. 3. Avoid using recreational drugs and alcohol. 4. Follow-up with your primary care physician 1 week. If you do not have a primary care physician, please call Dr. Primo Monsalve's office. 5. Resume activities as tolerated. ROB BAUTISTA NP Sep 14, 2016 11:10
--- NOTE | 2016-09-14 13:02 | DS ---
DATE OF ADMISSION: 09/03/2016 DATE OF DISCHARGE: 09/14/2016 FINAL DIAGNOSES: 1. Acute kidney injury with underlying hyperkalemia. Resolved. 2. Ischemic cardiomyopathy with ejection fraction of 25%. 3. Methamphetamine abuse. 4. Pulmonary hypertension. 5. Possible left ventricular thrombus. 6. Chronic cervical stenosis. 7. Essential hypertension. 8. Dyslipidemia. 9. Chronic psychosis. 10. Noncompliance with medications and medical management. HOSPITAL COURSE: This is a 51-year-old female with multiple comorbidities, who came to the emergency room with a chief complaint of generalized weakness and neck pain. The patient was noticed to have a creatinine of 2.37 with a potassium of 6.2 in the emergency room. Provided the patient's history of present illness, her comorbidities, and the diagnostic findings, a clinical decision was made to admit the patient to inpatient setting to have her further evaluated. The patient was admitted to inpatient setting. The patient was noticed to be taking GELACIO inhibitors at home. These were put on hold. The patient's renal function improved with the treatment strategy. The patient has underlying ischemic cardiomyopathy with ejection fraction of 25%. The patient was maintained on beta blockers for the same. The patient has recurrent methamphetamine abuser. The patient was advised on quitting the use of methamphetamine. The patient also abuses nicotine and alcohol. The patient was advised on quitting the use of these. The patient was being followed by a social security benefits interviewer. The patient has also left ventricular thrombus on her latest 2D echocardiogram. However, the patient is not on any anticoagulation since the patient is a poor candidate for anticoagulation because of her noncompliance. The patient has chronic cervical stenosis. The patient was maintained on analgesia for the same. The patient is not an ideal candidate for any kind of surgical intervention. The patient has a chronic right-sided pleural effusion. The patient has no evidence of any sepsis. The patient's latest chest x-ray was negative for any underlying pleural effusion. The patient has pulmonary hypertension as per her latest 2D echocardiogram with a PA systolic pressure of 39 mmHg. The patient has underlying dyslipidemia. She was continued on statins. The patient has underlying essential hypertension. The patient was maintained on antihypertensives for the same. The patient was noticed to be deconditioned. Hence, the patient was seen by physical therapy. Physical therapy recommended placement to a nursing home facility for continuation of care. However, case management had a difficult time in finding a nursing home facility for this patient because of her problems with drug abuse and noncompliance. On 09/14/2016 around 2:00 a.m. in the morning, the patient was found to have a boyfriend in her room, with the boyfriend carrying 2 bottles of vodka. Hence, security was informed and security came and asked the patient's boyfriend to leave the hospital premises. It was suspected that the patient was sneaking drugs and alcohol. The patient 's alcohol level after the incident was less than 10.0. Therefore, social security benefits interviewer talked to the patient and the patient will be discharged home. Home health will be ordered on this patient. As mentioned earlier, the patient is very, very noncompliant with her medications and medical management and continues to use drugs. DISCHARGE DISPOSITION/PLAN: The patient will be discharged home today. The patient was instructed to take her medications as per prescription. She was instructed to follow a low-cholesterol, low-potassium diet. She was instructed to avoid use of recreational drugs, tobacco and alcohol. She was instructed to follow up with her primary care physician in 1 week and if she does not have a primary care physician, to please call Dr. Primo Monsalve's office. She was instructed to resume activities as tolerated. The patient was given discharge instructions by the RN. CONDITION AT DISCHARGE: Stable. DISCHARGE MEDICATIONS: 1. Atorvastatin 20 mg p.o. at bedtime. 2. Coreg 6.25 mg p.o. b.i.d. 3. Famotidine 20 mg p.o. b.i.d. 4. Lasix 40 mg p.o. daily. PERTINENT LABORATORY AND DIAGNOSTIC DATA: 1. Latest CBC on 09/14/2006: WBC 7.2, hemoglobin 11.1, hematocrit 33.1, platelet count 300. 2. 2. Latest BMP from 09/14/2016: Sodium 140, potassium 3.8, chloride 101, carbon dioxide 27, anion gap 16, BUN 25, creatinine 0.96, glucose 116, calcium 9.9. 3. Hemoglobin A1c is 5.7. 4. Left shoulder x-ray. Normal images of the left shoulder. 5. Renal ultrasound. Unremarkable renal ultrasound. 6. Chest x-ray. No acute cardiopulmonary disease, mild cardiomegaly. 7. Cervical spine CT. No acute abnormality of the cervical spine. No evidence of fracture or dislocation. The case and management of this patient was fully discussed with Dr. Rodriguez. Approximately 35 minutes was spent on coordinating the discharge on this patient. ROB RODRIGUEZ MD, AM/ROMINA Conf#: [id number] DID#: [id number] MTDD
== END 2016-09-14 14:35 | disposition home or self-care (01) | DRG 683 ==
LOC: E/R 13:12 → MS4 19:13 → MS2 09-05 18:35
PROVIDERS: ADMIT Internal Medicine; ATTEND Internal Medicine
DX: N17.9 Acute kidney failure, unspecified (principal); I24.0 Acute coronary thrombosis not resulting in myocardial infarction; I27.2 Other secondary pulmonary hypertension; M48.02 Spinal stenosis, cervical region; N31.9 Neuromuscular dysfunction of bladder, unspecified; E87.5 Hyperkalemia; R33.9 Retention of urine, unspecified; Z99.3 Dependence on wheelchair; Z91.14 Patient's other noncompliance with medication regimen; Z91.19 Patient's noncompliance with other medical treatment and regimen; I25.5 Ischemic cardiomyopathy; F15.10 Other stimulant abuse, uncomplicated; Z72.0 Tobacco use; I10 Essential (primary) hypertension; F29 Unspecified psychosis not due to a substance or known physiological condition
CPT/HCPCS: 71010; 72125; 73030; 76775; 80048; 80053; 80306; 81003; 82306; 82962; 83036; 83690; 83735; 84100; 84443; 84484; 84703; 85025; 85610; 93005; 96374; 96375; 97110; 97162; 97530; A4310; J1644; J1815; J7030

== ENCOUNTER 2017-07-09 05:25 | Inpatient (IN) | END 2017-07-23 19:30 | DRG 481 ==

== ENCOUNTER → 2017-08-12 | Outpatient (CLI) | END | disposition home or self-care (01) ==

== ENCOUNTER 2018-12-05 20:06 | Inpatient (IN) | payer OTHER ==
[~2018-12-05] VITALS: Ht 154.9 cm; Wt 35.5 kg
[~2018-12-05 20:06] MED LIST changes: -ASPI-664 PO; +ASPI325T32 PO; +CARV3.1260 PO; -CARV6.2579 PO; +FAMO20TA18 PO; -FURO40TA4 PO; +GABA100C14 PO; -LISI-313 PO; +LOSA25TA2 PO; +QUET50TA PO; -SPIR25TA PO
[2018-12-05] MEDS ORDERED: SOD CHLORIDE 0.9% 0 ML IV ONE (21:39)
[2018-12-05] MEDS ORDERED: ACETAMINOPHEN 325 MG TAB PO PRN (22:00)
[2018-12-05] MEDS ORDERED: ONDANSETRON 4 MG INJ IV PRN (22:00)
[2018-12-05] MEDS ORDERED: FUROSEMIDE 20 MG INJ IV ONE (22:00)
[2018-12-05] MEDS: GABAPENTIN 100 MG CAP PO SCH (22:00)
[2018-12-05] MEDS ORDERED: SOD CHLORIDE 0.9% 100 ML ONE (22:31)
[2018-12-05] MEDS ORDERED: IOHEXOL 300MG/ML 150 ML BTL ONE (22:31)
--- NOTE | 2018-12-05 22:52 | ERD ---
ER Documentation Chief Complaint Chief Complaint CHEST PAIN X TODAY, RECTAL BLEED X 2 DAYS. HPI Patient is a 53-year-old female with hypertension and heart problems who presents with "my heart went out". She said that she is bleeding from her rectum as well. She has blood in her urine. She has had the symptoms for 2 days. She said they were black stools. She has no blood thinning medicines. She does have a primary doctor. She has had no treatment as of yet. ROS All systems reviewed and are negative except as per history of present illness. Medications Home Meds Active Scripts Gabapentin* (Gabapentin*) 100 Mg Capsule, 100 MG PO BID for 30 Days, #60 CAP Prov:KEILA XAVIER 07/23/17 Aspirin (Aspir-Lorena) 325 Mg Tablet.dr, 325 MG PO BID for 30 Days, #60 Prov:KEILA XAVIER 07/23/17 Losartan Potassium* (Cozaar*) 25 Mg Tablet, 25 MG PO DAILY for 30 Days, #30 TAB Prov:KEILA XAVIER 07/23/17 Carvedilol* (Carvedilol*) 3.125 Mg Tablet, 3.125 MG PO BID for 30 Days, #60 TAB Prov:KEILA XAVIER 07/23/17 Quetiapine Fumarate* (Seroquel*) 50 Mg Tablet, 50 MG PO HS, #14 TAB Prov:ANGEL MATA 07/09/17 Atorvastatin Calcium (Atorvastatin Calcium) 20 Mg Tablet, 20 MG PO HS for 30 Days, TAB Prov:SONU BROWER 04/18/16 Reported Medications Famotidine* (Famotidine*) 20 Mg Tablet, 20 MG PO BID, #60 TAB 09/03/16 Allergies Allergies: Coded Allergies: haloperidol (Verified Allergy, Unknown, 09/03/16) PMhx/Soc History of Surgery: Yes (back sx) Anesthesia Reaction: No Hx Neurological Disorder: No Hx Respiratory Disorders: No Hx Cardiac Disorders: Yes (ischemic cardiomyopathy, HTN) Hx Psychiatric Problems: Yes (hallucinations) Hx Miscellaneous Medical Probl: No Hx Alcohol Use: No (n/a ( no by Patient)) Hx Substance Use: No (n/a ( no by Patient)) Hx Tobacco Use: Yes Smoking Status: Current every day smoker FmHx Family History: No diabetes Physical Exam Vitals Vital Signs Date Temp Pulse Resp B/P (MAP) Pulse Ox O2 O2 Flow FiO2 Time Delivery Rate 12/05/18 98.3 110 16 129/58 98 20:10 (81) Physical Exam Const: No acute distress Head: Atraumatic Eyes: Normal Conjunctiva ENT: Normal External Ears, Nose and Mouth. Neck: Full range of motion. No meningismus. Resp: Clear to auscultation bilaterally Cardio: Regular rate and rhythm, no murmurs Abd: Soft, non tender, non distended. Normal bowel sounds Skin: Pale skin Back: No midline or flank tenderness Ext: No cyanosis, or edema Neur: Awake and alert Psych: Normal Mood and Affect Result Diagram: 12/05/18205312/05/182053 Results 24 hrs Laboratory Tests Test 12/05/18 20:54 White Blood Count 14.3 10^3/ul Red Blood Count 1.13 10^6/ul Hemoglobin 3.7 g/dl Hematocrit 11.2 % Mean Corpuscular Volume 99.1 fl Mean Corpuscular Hemoglobin 32.7 pg Mean Corpuscular Hemoglobin Concent 33.0 g/dl Red Cell Distribution Width 15.9 % Platelet Count 279 10^3/UL Mean Platelet Volume 10.9 fl Immature Granulocytes % 0.800 % Neutrophils % % Lymphocytes % % Monocytes % % Eosinophils % % Basophils % % Nucleated Red Blood Cells % 0.0 /100WBC Immature Granulocytes # 0.120 10^3/ul Neutrophils # 10^3/ul Lymphocytes # 10^3/ul Monocytes # 10^3/ul Eosinophils # 10^3/ul Basophils # 10^3/ul Nucleated Red Blood Cells # 10^3/ul Pathologist Review (Hematology) YES Prothrombin Time 13.3 Sec Prothrombin Time Ratio 1.0 INR International Normalized Ratio 1.00 Activated Partial Thromboplast Time 22.2 Sec Sodium Level 136 mmol/L Potassium Level 4.3 mmol/L Chloride Level 110 mmol/L Carbon Dioxide Level 17 mmol/L Anion Gap 9 Blood Urea Nitrogen 43 mg/dl Creatinine 1.10 mg/dl Est Glomerular Filtrat Rate mL/min 52 mL/min Glucose Level 147 mg/dl Calcium Level 8.2 mg/dl Troponin I < 0.012 ng/ml Current Medications Medications Dose Sig/Thelma Start Time Status Last (Trade) Ordered Route PRN Stop Time Admin Dose Reason Admin Sodium 0 ml @ 0 Q0M ONCE 12/05/18 DC Chloride mls/hr IV 21:39 12/05/18 21:40 Ondansetron 4 mg ER BRIDGE 12/05/18 HCl (Zofran PRN IV 22:00 Inj) NAUSEA/VOMITI 12/06/18 21:59 NG 650 mg ER BRIDGE 12/05/18 Acetaminophen PRN PO 22:00 (Tylenol .MILD PAIN 12/06/18 21:59 Tab) 1-3 OR TEMP Furosemide 20 mg ONCE ONCE 12/05/18 DC (Lasix) IV 22:00 12/05/18 22:01 Gabapentin 100 mg BID PO 12/05/18 (Neurontin) 22:00 Quetiapine 50 mg HS PO 12/06/18 Fumarate 21:00 (Seroquel) IV Flush 10 ml STK-MED 12/05/18 DC (NS 10 ml) ONCE .ROUTE 22:31 12/05/18 22:32 Sodium 100 ml @ ud STK-MED 12/05/18 DC Chloride ONCE .ROUTE 22:31 12/05/18 22:32 Iohexol 150 ml STK-MED 12/05/18 DC (Omnipaque ONCE .ROUTE 22:31 300mg/ ml) 12/05/18 22:32 Procedures/MDM Patient is a 53-year-old female presents with GI bleed and acute anemia. Her hemoglobin was found to be 3.7 and I have ordered 4 units of packed red blood cells. She will likely need admission and further work-up including endoscopy versus colonoscopy versus both. The patient will be admitted to the care of Dr. Gonzales to a telemetry bed. Critical Care: Time: 35 minutes excluding all billable procedures. Treatments/Evaluations: Close monitoring and treatment of unstable vital signs, cardiorespiratory, and neurologic status, while maintaining tight balance of fluid, respiratory, and cardiac interventions. Departure Diagnosis: Primary Impression: GI bleed GI bleed type/associated pathology: unspecified gastrointestinal hemorrhage type Qualified Codes: K92.2 - Gastrointestinal hemorrhage, unspecified Additional Impressions: Anemia Anemia type: unspecified type Qualified Codes: D64.9 - Anemia, unspecified Chest pain Chest pain type: unspecified Qualified Codes: R07.9 - Chest pain, unspecified Condition: Serious AUBREE MCKEON MD Dec 05, 2018 22:52
--- NOTE | 2018-12-06 02:17 | HP ---
Date/Time of Note Date/Time of Note DATE: 12/06/18 TIME: 02:09 Assessment/Plan VTE Prophylaxis SCD applied (from Nsg): Yes Pharmacological prophylaxis: NA/contraindicated Pharm contraindication: low risk/ambulating Lines/Catheters IV Catheter Type (from Nrsg): [place] Assessment/Plan Hospital Course This is a 52-year-old female being admitted to the telemetry floor for: #1 chest pain: Rule out ACS versus demand secondary to symptomatic anemia. Will trend cardiac enzymes x3, the first that was negative. EKG did show sinus tachycardia with ST depressions. PRN morphine/nitro. Will check hemoglobin C, lipid panel, TSH. Will check an echocardiogram. Consult cardiology . #2 severe symptomatic anemia: Patient with a hemoglobin of 3.7. She reports rectal bleeding as well as vaginal bleeding. Will obtain a CT of the abdomen pelvis with and without contrast to further evaluate. We will also order a vaginal ultrasound. Patient has been ordered 4 units of packed red blood cells. Will give Lasix 20 mg IV after the second unit. Repeat CBC after the transfusion and then every 6 hours. Will consult GI . #3 history of ischemic cardiomyopathy -ejection fraction found to be 50%. Patient currently appears euvolemic. She is complaining of chest pain. We will check a echocardiogram. #4 psychotic disorder:patient does state that she is on aspirin and has 2 babies in her stomach. Will check urine test. Patient did though have very similar complaints during previous admission: Continue Seroquel. Inpatient psych eval #5 history of hypertension: continue antihypertensives adjustment as needed #6 history of dyslipidemia: Check lipid panel #7 homelessness: Social work consult #8 DVT GI prophylaxis: SCDs, Protonix Further treatment strategy will be implemented as per the clinical course Result Diagram: 12/05/18205312/05/182053 Results 24hrs Laboratory Tests Test 12/05/18 20:54 White Blood Count 14.3 #H Red Blood Count 1.13 #L Hemoglobin 3.7 #*L Hematocrit 11.2 #L Mean Corpuscular Volume 99.1 Mean Corpuscular Hemoglobin 32.7 Mean Corpuscular Hemoglobin Concent 33.0 Red Cell Distribution Width 15.9 #H Platelet Count 279 # Mean Platelet Volume 10.9 H Immature Granulocytes % 0.800 H Neutrophils % Segmented Neutrophils % (Manual) 77 Band Neutrophils % (Manual) 1 Lymphocytes % Lymphocytes % (Manual) 16 Monocytes % Monocytes % (Manual) 6 Eosinophils % Basophils % Nucleated Red Blood Cells % 0.0 Immature Granulocytes # 0.120 H Neutrophils # Neutrophils # (Manual) 11.0 H Band Neutrophils # 0.1 Lymphocytes (Manual) 2.2 Lymphocytes # 2.3 Monocytes # 0.9 Monocytes # (Manual) 0.8 Eosinophils # Basophils # Nucleated Red Blood Cells # Pathologist Review (Hematology) YES Hypochromasia 3+ Poikilocytosis 2+ Anisocytosis 1+ Target Cells 2+ Acanthocytes 1+ Prothrombin Time 13.3 Prothrombin Time Ratio 1.0 INR International Normalized Ratio 1.00 Activated Partial Thromboplast Time 22.2 L Sodium Level 136 Potassium Level 4.3 Chloride Level 110 Carbon Dioxide Level 17 L Anion Gap 9 Blood Urea Nitrogen 43 H Creatinine 1.10 H Est Glomerular Filtrat Rate mL/min 52 L Glucose Level 147 Calcium Level 8.2 L Troponin I < 0.012 HPI/ROS Admit Date/Time Admit Date/Time Hx of Present Illness Chief complaint: Chest pain, GI bleed Patient is a poor historian This is a 53-year female who presented to the emergency department with complaints of chest pain. Patient also was reporting that she had vaginal bleeding and rectal bleeding. She did report that the bleeding was originally bright red and then became dark. Patient is noted to have a mood/psychotic disorder in the past. 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 Allergies: Haldol Medications: Aspirin 325 mg p.o. daily Losartan 25 mg p.o. daily Atorvastatin 20 mg p.o. nightly Carvedilol 3.125 mg p.o. twice daily Famotidine 20 mg p.o. twice daily Gabapentin 100 mg p.o. twice daily Seroquel 50 mg p.o. nightly ROS Const: As per HPI Eyes : No pain discharge or redness or change in visual acuity ENT: No pain, sore throat, congestion, congestion, dysphagia or discharge Respiratory: No shortness of breath, cough, sputum, wheezing, or pleuritic pain Cardiovascular: As per HPI GI : As per HPI Genitourinary: No dysuria, hematuria, flank pain , discharge or CVA tenderness Musculoskeletal: No joint pain, back pain, neck pain, restricted range of motion in neck or joints Skin: No rash, bruising or hives Neuro: No headache, dizziness, syncope, seizure, focal weakness Endocrine: No polyuria, polydipsia, temperature intolerance Psych: No hallucination, depression, anxiety or suicidal ideation PMH/Family/Social Past Medical History ischemic cardiomyopathy with EF of 50%, hypertension, dyslipidemia, cervical stenosis, chronic right pleural effusion, psychotic disorder and noncompliance. Medications Current Medications Ondansetron HCl (Zofran Inj) 4 mg ER BRIDGE PRN IV NAUSEA/VOMITING; Start 05/14 at 22:00; Stop 12/06/18 at 21:59 Acetaminophen (Tylenol Tab) 650 mg ER BRIDGE PRN PO .MILD PAIN 1-3 OR TEMP; Start 12/05/18 at 22:00; Stop 12/06/18 at 21:59 Gabapentin (Neurontin) 100 mg BID PO ; Start 12/05/18 at 22:00 Quetiapine Fumarate (Seroquel) 50 mg HS PO ; Start 12/06/18 at 21:00 Coded Allergies: Penicillins (Verified Allergy, Unknown, 12/06/18) haloperidol (Verified Allergy, Unknown, 09/03/16) Past Surgical History Right hip ORIF Family History Significant Family History: no pertinent family hx Social History Alcohol Use: none Smoking Status: Current every day smoker Drug Use: none Exam/Review of Systems Vital Signs Vitals Vital Signs Date Temp Pulse Resp B/P (MAP) Pulse Ox O2 O2 Flow FiO2 Time Delivery Rate 12/05/18 97 11 134/63 98 Room Air 23:00 (86) 12/05/18 98.3 20:10 Exam Exam General: Patient is currently lying in bed initially was sleeping but when I awoke her she was complaining of abdominal pain, pale-appearing HEENT: Atraumatic, normocephalic. The pupils are equal, round and reactive. Extraocular motor are intact Neck: Supple with full range of motion. No rigidity or meningismus Chest: Nontender Lungs: Clear to auscultation bilaterally no crackles rales or wheezing Heart: Sinus tachycardia Abdomen: Soft, generalized tenderness to palpation of the abdomen bowel sounds are present. No guarding no rebound tenderness , No masses or organomegaly. 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 Additional Comments EKG: Sinus tachycardia at 115 bpm, ST wave depressions in inferior leads, T wave inversions in V4 V5 V6 PROCEDURE: XR Chest. CLINICAL INDICATION: Chest pain TECHNIQUE: Single portable view of the chest was obtained COMPARISON: CR CHEST 07/12/2016; CR CHEST 05/01/2016; CR CHEST 04/15/2016 FINDINGS: The trachea is midline. The cardiac silhouette is mildly enlarged and pulmonary vascularity are within normal limits. The lungs are clear. The costophrenic angles are sharp. IMPRESSION: 1. Mild cardiomegaly. No evidence of acute cardiopulmonary disease. RPTAT: AAPP Physician Stephanie Date Time Electronically viewed and signed by Daryn Mckinley Physician on 12/05/2018 22:23 JL/ CC: AUBREE MCKEON MD [id number] LADY VINES Dec 06, 2018 02:17
[2018-12-06] MEDS: morphine 2 MG INJ IV PRN ×4 (03:46→20:06)
[2018-12-06 04:53] VITALS: Ht 154.9 cm; Wt 35.5 kg
[2018-12-06] MEDS ORDERED: LORAZEPAM 2 MG INJ IV PRN (05:30)
[2018-12-06] MEDS ORDERED: FUROSEMIDE 20 MG INJ IV ONE (06:57)
[2018-12-06] MEDS: PANTOPRAZOLE 40 MG INJ IV SCH ×2 (07:11→17:15)
[2018-12-06] MEDS: GABAPENTIN 100 MG CAP PO SCH ×2 (08:11→20:58)
[2018-12-06] MEDS ORDERED: FAMOTIDINE 20 MG TAB PO SCH (09:00)
[2018-12-06 11:13] VITALS: BP 144/79; PULSE 82; RESP 20
--- NOTE | 2018-12-06 12:20 | CONS ---
Assessment/Plan Assessment/Plan Assessment/Plan (Daily) Assessment Chest pain Abnormal EKG Nonadherence Marked anemia H/o LV dysfunction Plan: Currently no antiplatelet therapy given anemia Cardiac gallegos deferred Limited medical options echo pending Consultation Date/Type/Reason Admit Date/Time Type of Consult Cardiology Date/Time of Note DATE: 12/06/18 TIME: 12:17 Hx of Present Illness admitted with marked anemia accompanied by chest pain, which is now resolved with PRBC, no sob Constitutional: poor po Respiratory: no complaints Cardiovascular: no complaints Gastrointestinal: no complaints Musculoskeletal: no complaints Skin: no complaints Neurologic: no complaints Past Medical History Medical History: hypertension Home Meds Active Scripts Gabapentin* (Gabapentin*) 100 Mg Capsule, 100 MG PO BID for 30 Days, #60 CAP Prov:KEILA XAVIER 07/23/17 Aspirin (Aspir-Lorena) 325 Mg Tablet.dr, 325 MG PO BID for 30 Days, #60 Prov:KEILA XAVIER 07/23/17 Losartan Potassium* (Cozaar*) 25 Mg Tablet, 25 MG PO DAILY for 30 Days, #30 TAB Prov:KEILA XVAIER 07/23/17 Carvedilol* (Carvedilol*) 3.125 Mg Tablet, 3.125 MG PO BID for 30 Days, #60 TAB Prov:KEILA XAVIER 07/23/17 Quetiapine Fumarate* (Seroquel*) 50 Mg Tablet, 50 MG PO HS, #14 TAB Prov:ANGEL MATA 07/09/17 Atorvastatin Calcium (Atorvastatin Calcium) 20 Mg Tablet, 20 MG PO HS for 30 Days, TAB Prov:SONU BROWER 04/18/16 Reported Medications Famotidine* (Famotidine*) 20 Mg Tablet, 20 MG PO BID, #60 TAB 09/03/16 Medications Current Medications Ondansetron HCl (Zofran Inj) 4 mg ER BRIDGE PRN IV NAUSEA/VOMITING Last administered on 12/06/18at 03:46; Admin Dose 4 MG; Start 12/05/18 at 22:00; Stop 12/06/18 at 21:59 Acetaminophen (Tylenol Tab) 650 mg ER BRIDGE PRN PO .MILD PAIN 1-3 OR TEMP; Start 12/05/18 at 22:00; Stop 12/06/18 at 21:59 Gabapentin (Neurontin) 100 mg BID PO Last administered on 12/06/18at 08:11; Admin Dose 100 MG; Start 12/05/18 at 22:00 Quetiapine Fumarate (Seroquel) 50 mg HS PO ; Start 12/06/18 at 21:00 Morphine Sulfate (morphine) 1 mg Q4H PRN IV SEVERE PAIN LEVEL 7-10 Last administered on 12/06/18at 08:11; Admin Dose 1 MG; Start 12/06/18 at 02:30 Atorvastatin Calcium (Lipitor) 20 mg HS PO ; Start 12/06/18 at 21:00 Carvedilol (Coreg) 3.125 mg BID PO Last administered on 12/06/18at 08:11; Admin Dose 3.125 MG; Start 12/06/18 at 09:00 Pantoprazole (Protonix Iv) 40 mg BID@06,18 IV Last administered on 12/06/18at 07:11; Admin Dose 40 MG; Start 12/06/18 at 06:00 Lorazepam (Ativan) 0.5 mg Q6H PRN IV ANXIETY; Start 12/06/18 at 05:30 Allergies: Coded Allergies: Penicillins (Verified Allergy, Unknown, 12/06/18) haloperidol (Verified Allergy, Unknown, 09/03/16) Family History Significant Family History: hypertension Social History Alcohol Use: none Smoking Status: Current every day smoker Drug Use: none Exam/Review of Systems Vital Signs Vitals Vital Signs Date Temp Pulse Resp B/P (MAP) Pulse Ox O2 O2 Flow FiO2 Time Delivery Rate 12/06/18 98.0 82 20 144/79 97 11:13 (100) 12/06/18 Nasal 2.0 07:58 Cannula Exam Constitutional: alert, oriented Head: normocephalic, atraumatic Respiratory: clear to auscultation Cardiovascular: regular rate and rhythm Gastrointestinal: soft Musculoskeletal: nl extremities to inspection Extremities: normal pulses Labs Result Diagram: 12/05/18205312/05/182053 Results 24hrs Laboratory Tests Test 12/05/18 20:54 12/06/18 03:14 12/06/18 07:30 White Blood Count 14.3 #H Red Blood Count 1.13 #L Hemoglobin 3.7 #*L Hematocrit 11.2 #L Mean Corpuscular Volume 99.1 Mean Corpuscular Hemoglobin 32.7 Mean Corpuscular Hemoglobin Concent 33.0 Red Cell Distribution Width 15.9 #H Platelet Count 279 # Mean Platelet Volume 10.9 H Immature Granulocytes % 0.800 H Neutrophils % Segmented Neutrophils % (Manual) 77 Band Neutrophils % (Manual) 1 Lymphocytes % Lymphocytes % (Manual) 16 Monocytes % Monocytes % (Manual) 6 Eosinophils % Basophils % Nucleated Red Blood Cells % 0.0 Immature Granulocytes # 0.120 H Neutrophils # Neutrophils # (Manual) 11.0 H Band Neutrophils # 0.1 Lymphocytes (Manual) 2.2 Lymphocytes # 2.3 Monocytes # 0.9 Monocytes # (Manual) 0.8 Eosinophils # Basophils # Nucleated Red Blood Cells # Pathologist Review (Hematology) YES Hypochromasia 3+ Poikilocytosis 2+ Anisocytosis 1+ Target Cells 2+ Acanthocytes 1+ Prothrombin Time 13.3 Prothrombin Time Ratio 1.0 INR International Normalized Ratio 1.00 Activated Partial Thromboplast Time 22.2 L Sodium Level 136 Potassium Level 4.3 Chloride Level 110 Carbon Dioxide Level 17 L Anion Gap 9 Blood Urea Nitrogen 43 H Creatinine 1.10 H Est Glomerular Filtrat Rate mL/min 52 L Glucose Level 147 Calcium Level 8.2 L Troponin I < 0.012 0.029 Creatine Kinase 50 Creatine Kinase Index 2.2 Creatinine Kinase MB (Mass) 1.08 Urine Color STRAW Urine Clarity CLEAR Urine pH 5.0 Urine Specific [place] 1.030 Urine Ketones NEGATIVE Urine Nitrite NEGATIVE Urine Bilirubin NEGATIVE Urine Urobilinogen NEGATIVE Urine Leukocyte Esterase NEGATIVE Urine Hemoglobin NEGATIVE Urine Glucose NEGATIVE Urine Total Protein NEGATIVE Medications Medications Current Medications Ondansetron HCl (Zofran Inj) 4 mg ER BRIDGE PRN IV NAUSEA/VOMITING Last administered on 12/06/18at 03:46; Admin Dose 4 MG; Start 12/05/18 at 22:00; Stop 12/06/18 at 21:59 Acetaminophen (Tylenol Tab) 650 mg ER BRIDGE PRN PO .MILD PAIN 1-3 OR TEMP; Start 12/05/18 at 22:00; Stop 12/06/18 at 21:59 Gabapentin (Neurontin) 100 mg BID PO Last administered on 12/06/18at 08:11; Admin Dose 100 MG; Start 12/05/18 at 22:00 Quetiapine Fumarate (Seroquel) 50 mg HS PO ; Start 12/06/18 at 21:00 Morphine Sulfate (morphine) 1 mg Q4H PRN IV SEVERE PAIN LEVEL 7-10 Last administered on 12/06/18at 08:11; Admin Dose 1 MG; Start 12/06/18 at 02:30 Atorvastatin Calcium (Lipitor) 20 mg HS PO ; Start 12/06/18 at 21:00 Carvedilol (Coreg) 3.125 mg BID PO Last administered on 12/06/18at 08:11; Admin Dose 3.125 MG; Start 12/06/18 at 09:00 Pantoprazole (Protonix Iv) 40 mg BID@06,18 IV Last administered on 12/06/18at 07:11; Admin Dose 40 MG; Start 12/06/18 at 06:00 Lorazepam (Ativan) 0.5 mg Q6H PRN IV ANXIETY; Start 12/06/18 at 05:30 KATRINA CASTELLANOS MD Dec 06, 2018 12:20
--- NOTE | 2018-12-06 14:05 | CONS ---
Assessment/Plan Assessment/Plan Assessment/Plan (Daily) Assessment: Symptomatic severe anemia -hemoglobin 3.7 Questionable rectal bleeding Melena Recent NSAID use Alcohol abuse Chronic pancreatitis on CT Psychiatric disorder -patient states she is Hypertension Dyslipidemia Homelessness Plan: Recommend EGD/colonoscopy -refusing for now Continue pantoprazole twice daily Start Carafate GI cocktail x1 Monitor H&H Transfuse for hemoglobin less than 7.5 Patient seen in collaboration Dr. Flood Consultation Date/Type/Reason Admit Date/Time Date of Consultation: Dec 06, 2018 Type of Consult GI Reason for Consultation Severe symptomatic anemia/melena Date/Time of Note DATE: 12/06/18 TIME: 13:52 Hx of Present Illness This is a homeless 53-year-old female with a history of psychiatric disorder, hypertension and dyslipidemia who was admitted for symptomatic anemia. Patient states she developed epigastric and lower abdominal pain with rectal bleeding 2 days ago. She is unsure where the blood is coming from whether its urine, vaginal or rectal bleeding. She reports her stool black tarry. She has been taking Aleve lately. She reports drinking 1 glass of tequila per day. Her hemoglobin was 3.7 on admission. Blood transfusion given. CT of the abdomen shows chronic pancreatitis with multiple pancreatic calcifications. States her colonoscopy was more than 10 years agoresults are unknown. Patient has a history of chronic constipation. Currently there is no evidence of nausea, vomiting,, diarrhea , hematemesis or fever. Will start the patient on PPI drip and Carafate. Monitor closely. Recommend EGD/colonoscopy for anemia work-up. Patient is deciding on endoscopic interventions. Gastrointestinal: no complaints (See HPI) Past Medical History Hypertension, dyslipidemia, diastolic dysfunction, chronic pancreatitis Home Meds Active Scripts Gabapentin* (Gabapentin*) 100 Mg Capsule, 100 MG PO BID for 30 Days, #60 CAP Prov:KEILA XAVIER 07/23/17 Aspirin (Aspir-Lorena) 325 Mg Tablet., 325 MG PO BID for 30 Days, #60 Prov:KEILA XAVIER 07/23/17 Losartan Potassium* (Cozaar*) 25 Mg Tablet, 25 MG PO DAILY for 30 Days, #30 TAB Prov:KEILA XAVIER 07/23/17 Carvedilol* (Carvedilol*) 3.125 Mg Tablet, 3.125 MG PO BID for 30 Days, #60 TAB Prov:KEILA XAVIER 07/23/17 Quetiapine Fumarate* (Seroquel*) 50 Mg Tablet, 50 MG PO HS, #14 TAB Prov:ANGEL MATA 07/09/17 Atorvastatin Calcium (Atorvastatin Calcium) 20 Mg Tablet, 20 MG PO HS for 30 Days, TAB Prov:SONU BROWER 04/18/16 Reported Medications Famotidine* (Famotidine*) 20 Mg Tablet, 20 MG PO BID, #60 TAB 09/03/16 Medications Current Medications Ondansetron HCl (Zofran Inj) 4 mg ER BRIDGE PRN IV NAUSEA/VOMITING Last administered on 12/06/18at 03:46; Admin Dose 4 MG; Start 12/05/18 at 22:00; Stop 12/06/18 at 21:59 Acetaminophen (Tylenol Tab) 650 mg ER BRIDGE PRN PO .MILD PAIN 1-3 OR TEMP; Start 12/05/18 at 22:00; Stop 12/06/18 at 21:59 Gabapentin (Neurontin) 100 mg BID PO Last administered on 12/06/18at 08:11; Admin Dose 100 MG; Start 12/05/18 at 22:00 Quetiapine Fumarate (Seroquel) 50 mg HS PO ; Start 12/06/18 at 21:00 Morphine Sulfate (morphine) 1 mg Q4H PRN IV SEVERE PAIN LEVEL 7-10 Last administered on 12/06/18at 13:45; Admin Dose 1 MG; Start 12/06/18 at 02:30 Atorvastatin Calcium (Lipitor) 20 mg HS PO ; Start 12/06/18 at 21:00 Carvedilol (Coreg) 3.125 mg BID PO Last administered on 12/06/18at 08:11; Admin Dose 3.125 MG; Start 12/06/18 at 09:00 Pantoprazole (Protonix Iv) 40 mg BID@,18 IV Last administered on 12/06/18at 07:11; Admin Dose 40 MG; Start 12/06/18 at 06:00 Lorazepam (Ativan) 0.5 mg Q6H PRN IV ANXIETY; Start 12/06/18 at 05:30 Allergies: Coded Allergies: Penicillins (Verified Allergy, Unknown, 12/06/18) haloperidol (Verified Allergy, Unknown, 09/03/16) Social History Alcohol Use: none Smoking Status: Current every day smoker Drug Use: none Exam/Review of Systems Exam Vitals Vital Signs Date Temp Pulse Resp B/P (MAP) Pulse Ox O2 O2 Flow FiO2 Time Delivery Rate 12/06/18 98.0 82 20 144/79 97 11:13 (100) 12/06/18 Nasal 2.0 07:58 Cannula Exam PHYSICAL EXAMINATION: GENERAL: Well developed, unkempt, alert & confused, in no acute distress SKIN: No lesions, no stigmata chronic liver disease, no evidence of bleeding diathesis LYMPHATIC: No palpable lymphadenopathy. HEAD: Normocephalic, atraumatic, no tenderness. EYES: Pupils equal reactive to light and accommodation, full extraocular movements, sclera clear, non-icteric, no discharge. EARS/NOSE AND THROAT: Ears normal, nose normal, oropharynx normal, oral membranes well hydrated without lesions. NECK: Supple, no masses, thyroid normal, JVP within normal limits, carotids normal without bruits. CHEST: Inspection within normal limits. CARDIOVASCULAR: Heart: Regular rate and rhythm, no murmurs, gallops or rubs. Peripheral pulses present within normal limits, no cyanosis, clubbing or edemas. No pulsatile abdominal mass RESPIRATORY: Lungs clear to auscultation and percussion, no wheezing, no rubs GASTROINTESTINAL AND LIVER: Abdomen: Soft, epigastric and lower abdominal tende rness, non-distended, no hernias, no masses, no organomegaly, no ascites, no guarding, no rebound tenderness, normoactive bowel sounds. Rectal: Deferred. GENITOURINARY: Female genitalia within normal limits. EXTREMITIES: No cyanosis, clubbing or edema. Results Result Diagram: 12/05/18205312/05/182053 Results 24hrs Laboratory Tests Test 12/05/18 20:54 12/06/18 03:14 12/06/18 07:30 White Blood Count 14.3 #H Red Blood Count 1.13 #L Hemoglobin 3.7 #*L Hematocrit 11.2 #L Mean Corpuscular Volume 99.1 Mean Corpuscular Hemoglobin 32.7 Mean Corpuscular Hemoglobin Concent 33.0 Red Cell Distribution Width 15.9 #H Platelet Count 279 # Mean Platelet Volume 10.9 H Immature Granulocytes % 0.800 H Neutrophils % Segmented Neutrophils % (Manual) 77 Band Neutrophils % (Manual) 1 Lymphocytes % Lymphocytes % (Manual) 16 Monocytes % Monocytes % (Manual) 6 Eosinophils % Basophils % Nucleated Red Blood Cells % 0.0 Immature Granulocytes # 0.120 H Neutrophils # Neutrophils # (Manual) 11.0 H Band Neutrophils # 0.1 Lymphocytes (Manual) 2.2 Lymphocytes # 2.3 Monocytes # 0.9 Monocytes # (Manual) 0.8 Eosinophils # Basophils # Nucleated Red Blood Cells # Pathologist Review (Hematology) YES Hypochromasia 3+ Poikilocytosis 2+ Anisocytosis 1+ Target Cells 2+ Acanthocytes 1+ Prothrombin Time 13.3 Prothrombin Time Ratio 1.0 INR International Normalized Ratio 1.00 Activated Partial Thromboplast Time 22.2 L Sodium Level 136 Potassium Level 4.3 Chloride Level 110 Carbon Dioxide Level 17 L Anion Gap 9 Blood Urea Nitrogen 43 H Creatinine 1.10 H Est Glomerular Filtrat Rate mL/min 52 L Glucose Level 147 Calcium Level 8.2 L Troponin I < 0.012 0.029 Creatine Kinase 50 Creatine Kinase Index 2.2 Creatinine Kinase MB (Mass) 1.08 Urine Color STRAW Urine Clarity CLEAR Urine pH 5.0 Urine Specific [place] 1.030 Urine Ketones NEGATIVE Urine Nitrite NEGATIVE Urine Bilirubin NEGATIVE Urine Urobilinogen NEGATIVE Urine Leukocyte Esterase NEGATIVE Urine Hemoglobin NEGATIVE Urine Glucose NEGATIVE Urine Total Protein NEGATIVE Medications Medication Current Medications Ondansetron HCl (Zofran Inj) 4 mg ER BRIDGE PRN IV NAUSEA/VOMITING Last administered on 12/06/18at 03:46; Admin Dose 4 MG; Start 12/05/18 at 22:00; Stop 12/06/18 at 21:59 Acetaminophen (Tylenol Tab) 650 mg ER BRIDGE PRN PO .MILD PAIN 1-3 OR TEMP; Start 12/05/18 at 22:00; Stop 12/06/18 at 21:59 Gabapentin (Neurontin) 100 mg BID PO Last administered on 12/06/18at 08:11; Admin Dose 100 MG; Start 12/05/18 at 22:00 Quetiapine Fumarate (Seroquel) 50 mg HS PO ; Start 12/06/18 at 21:00 Morphine Sulfate (morphine) 1 mg Q4H PRN IV SEVERE PAIN LEVEL 7-10 Last administered on 12/06/18at 13:45; Admin Dose 1 MG; Start 12/06/18 at 02:30 Atorvastatin Calcium (Lipitor) 20 mg HS PO ; Start 12/06/18 at 21:00 Carvedilol (Coreg) 3.125 mg BID PO Last administered on 12/06/18at 08:11; Admin Dose 3.125 MG; Start 12/06/18 at 09:00 Pantoprazole (Protonix Iv) 40 mg BID@06,18 IV Last administered on 12/06/18at 07:11; Admin Dose 40 MG; Start 12/06/18 at 06:00 Lorazepam (Ativan) 0.5 mg Q6H PRN IV ANXIETY; Start 12/06/18 at 05:30 PIERRE GUZMÁN NP Dec 06, 2018 14:02
[2018-12-06] MEDS ORDERED: LIDOCAINE/MYLANTA 40 ML BTL PO ONE (15:00)
[2018-12-06 15:53] VITALS: BP 166/98; PULSE 83; RESP 19
[2018-12-06] MEDS: SUCRALFATE (100 MG/ML) 10ML CUP GTB SCH ×2 (17:15→20:58)
[2018-12-06 20:39] VITALS: BP 156/80; PULSE 103; RESP 18
[2018-12-06] MEDS ORDERED: ATORVASTATIN 20 MG TAB PO SCH (21:00)
[2018-12-06] MEDS ORDERED: QUETIAPINE 25 MG TAB PO SCH (21:00)
[2018-12-07 00:29] VITALS: BP 91/61; PULSE 81; RESP 18
[2018-12-07] MEDS: PANTOPRAZOLE 40 MG INJ IV SCH (06:00)
[2018-12-07] MEDS: morphine 2 MG INJ IV PRN ×2 (06:54→12:43)
[2018-12-07 07:56] VITALS: BP 142/79; PULSE 89; RESP 19
[2018-12-07] MEDS: SUCRALFATE (100 MG/ML) 10ML CUP GTB SCH ×2 (08:35→12:43)
[2018-12-07] MEDS: GABAPENTIN 100 MG CAP PO SCH (08:36)
[2018-12-07 11:12] VITALS: BP 143/81; PULSE 86; RESP 19
--- NOTE | 2018-12-07 14:23 | CONS ---
Assessment/Plan Assessment/Plan Hospital Course (Demo Recall) Severe anemia status post blood transfusion Chest pain, resolved History of left ventricular dysfunction History of polysubstance abuse Psychiatric disorder Patient denies any chest pain or shortness of breath currently. Status post blood transfusion Records reviewed from previous admission, patient with history of severe LV systolic dysfunction Repeat echocardiogram pending. Consultation Date/Type/Reason Admit Date/Time Dec 05, 2018 at 21:43 Initial Consult Date 12/06/18 Type of Consult Cardiology Date/Time of Note DATE: 12/07/18 TIME: 14:21 24 HR Interval Summary Free Text/Dictation Denies chest pain, shortness of breath, palpitations. Complaining of burning in her belly Exam/Review of Systems Vital Signs Vitals Vital Signs Date Temp Pulse Resp B/P (MAP) Pulse Ox O2 O2 Flow FiO2 Time Delivery Rate 12/07/18 98.1 86 19 143/81 97 11:12 (101) 12/07/18 Nasal 2.0 03:15 Cannula Intake and Output 12/06/18 12/06/18 12/07/18 1515:00 23:00 07:00 IntakeIntake Total 240 ml 600 ml 200 ml OutputOutput Total 2 ml BalanceBalance 238 ml 600 ml 200 ml Exam Constitutional: alert (Follows commands, no apparent distress, disheveled), frail Head: normocephalic Respiratory: other (Coarse breath sounds bilaterally, no wheezing) Cardiovascular: regular rate and rhythm (S1-S2 heard) Gastrointestinal: soft, non-tender, bowel sounds Extremities: other (No significant edema) Labs Result Diagram: 12/06/18 1659 12/06/18 1659 Results 24hrs Laboratory Tests Test 12/06/18 16:50 12/06/18 16:59 Serum HCG, Qualitative NEGATIVE White Blood Count 9.3 # Red Blood Count 4.49 # Hemoglobin 13.3 # Hematocrit 38.6 # Mean Corpuscular Volume 86.0 Mean Corpuscular Hemoglobin 29.6 Mean Corpuscular Hemoglobin Concent 34.5 Red Cell Distribution Width 17.0 H Platelet Count 186 # Mean Platelet Volume 10.5 H Immature Granulocytes % 1.000 H Neutrophils % 68.0 Lymphocytes % 19.5 Monocytes % 9.5 Eosinophils % 1.4 Basophils % 0.6 Nucleated Red Blood Cells % 0.2 H Immature Granulocytes # 0.090 H Neutrophils # 6.3 Lymphocytes # 1.8 Monocytes # 0.9 Eosinophils # 0.1 Basophils # 0.1 Nucleated Red Blood Cells # 0.0 Sodium Level 136 Potassium Level 4.4 Chloride Level 108 Carbon Dioxide Level 20 L Anion Gap 8 Blood Urea Nitrogen 31 #H Creatinine 1.02 H Est Glomerular Filtrat Rate mL/min 57 L Glucose Level 134 Hemoglobin A1c 5.0 Calcium Level 8.7 Magnesium Level 1.6 L Total Bilirubin 1.0 Direct Bilirubin 0.00 Indirect Bilirubin 1.0 Aspartate Amino Transf (AST/SGOT) 41 Alanine Aminotransferase (ALT/SGPT) 25 Alkaline Phosphatase 102 Creatine Kinase 55 Creatine Kinase Index 1.9 Creatinine Kinase MB (Mass) 1.02 Troponin I < 0.012 Total Protein 6.8 Albumin 3.4 Globulin 3.40 H Albumin/Globulin Ratio 1.00 Triglycerides Level 309 H Cholesterol Level 173 LDL Cholesterol, Calculated 79 HDL Cholesterol 32 L Cholesterol/HDL Ratio 5.4 Lipase 2195 H Thyroid Stimulating Hormone (TSH) 3.530 Ethyl Alcohol Level < 10.0 H Medications Medications Current Medications Gabapentin (Neurontin) 100 mg BID PO Last administered on 12/07/18 08:36; Admin Dose 100 MG; Start 12/05/18 at 22:00 Quetiapine Fumarate (Seroquel) 50 mg HS PO Last administered on 12/06/18 20:58; Admin Dose 50 MG; Start 12/06/18 at 21:00 Morphine Sulfate (morphine) 1 mg Q4H PRN IV SEVERE PAIN LEVEL 7-10 Last administered on 12/07/18 12:43; Admin Dose 1 MG; Start 12/06/18 at 02:30 Atorvastatin Calcium (Lipitor) 20 mg HS PO Last administered on 12/06/18 20:58 ; Admin Dose 20 MG; Start 12/06/18 at 21:00 Carvedilol (Coreg) 3.125 mg BID PO Last administered on 12/07/18 08:36; Admin Dose 3.125 MG; Start 12/06/18 at 09:00 Pantoprazole (Protonix Iv) 40 mg BID@06,18 IV Last administered on 12/06/18 17:15; Admin Dose 40 MG; Start 12/06/18 at 06:00 Lorazepam (Ativan) 0.5 mg Q6H PRN IV ANXIETY; Start 12/06/18 at 05:30 Sucralfate (Carafate Susp) 1 gm QID GTB Last administered on 12/07/18at 12:43; Admin Dose 1 GM; Start 12/06/18 at 17:00 Hitesh Becerra DO Dec 07, 2018 14:23
--- NOTE | 2018-12-07 14:36 | PDOCDIS ---
Discharge Instructions DIAGNOSIS Discharge Diagnosis Acute blood loss anemia CONDITION [id number] Patient Condition: [id number] Stable FOLLOW UP/APPOINTMENTS Follow-up Plan It is not clear what caused your blood loss and anemia. The underlying cause may still be present and may include peptic ulcer or cancer. Please establish care with a doctor to investigate this problem further. Return to the hospital if you have any further bleeding EDUIN WHIPPLE MD Dec 07, 2018 14:36
--- NOTE | 2018-12-07 15:07 | DS ---
Date/Time of Note Date/Time of Note DATE: 12/07/18 TIME: 15:06 Discharge Summary Admission/Discharge Info Admit Date/Time Dec 05, 2018 at 21:43 Discharge Date/Time Discharge Diagnosis Acute blood loss anemia Patient Condition: Stable Hospital Course The patient presented with acute blood loss of anemia likely from GI source though it was not clear if it was vaginal. She was found to have a severe anemia and was transfused 4 units of PRBCs. She no longer had any clinical bleeding. CT of the abdomen pelvis did not reveal source and pelvis did not reveal any abnormalities. She was offered GI endoscopy however she declined. She also refused any further lab draws. She did have some evidence of delusional thinking but clearly had capacity to refuse endoscopy or further lab draws. She understands that she may have an undiagnosed cancer and is able to repeat this possibility back to me. She requests to be discharged without further work-up. She understands the risks that this may include severe illness or even and she understands this and is able to state it back to me. She says she will follow-up if she has recurrence of bleeding. I advised her to avoid any NSAIDs Home Meds Discontinued Reported Medications Famotidine* (Famotidine*) 20 Mg Tablet, 20 MG PO BID, #60 TAB 09/03/16 Discontinued Scripts Gabapentin* (Gabapentin*) 100 Mg Capsule, 100 MG PO BID for 30 Days, #60 CAP Prov:KEILA XAVIER 07/23/17 Aspirin (Aspir-Lorena) 325 Mg Tablet.dr, 325 MG PO BID for 30 Days, #60 Prov:KEILA XAVIER 07/23/17 Losartan Potassium* (Cozaar*) 25 Mg Tablet, 25 MG PO DAILY for 30 Days, #30 TAB Prov:KEILA XAVIER 07/23/17 Carvedilol* (Carvedilol*) 3.125 Mg Tablet, 3.125 MG PO BID for 30 Days, #60 TAB Prov:KEILA XAVIER 07/23/17 Quetiapine Fumarate* (Seroquel*) 50 Mg Tablet, 50 MG PO HS, #14 TAB Prov:ANGEL MATA 07/09/17 Atorvastatin Calcium (Atorvastatin Calcium) 20 Mg Tablet, 20 MG PO HS for 30 Days, TAB Prov:SONU BROWER 04/18/16 Follow-up Plan It is not clear what caused your blood loss and anemia. The underlying cause may still be present and may include peptic ulcer or cancer. Please establish care with a doctor to investigate this problem further. Return to the hospital if you have any further bleeding Primary Care Provider Care Physician No Primary Pending Labs Laboratory Tests Test 12/06/18 16:50 12/06/18 16:59 Serum HCG, Qualitative NEGATIVE (NEGATIVE) White Blood Count 9.3 10^3/ul (4.8-10.8) Red Blood Count 4.49 10^6/ul (4.20-5.40) Hemoglobin 13.3 g/dl (12.0-16.0) Hematocrit 38.6 % (37.0-47.0) Mean Corpuscular Volume 86.0 fl (82.0-101.0) Mean Corpuscular Hemoglobin 29.6 pg (29.0-33.0) Mean Corpuscular 34.5 g/dl (32.0-37.0) Hemoglobin Concent Red Cell Distribution Width 17.0 % (11.5-14.5) Platelet Count 186 10^3/UL (140-415) Mean Platelet Volume 10.5 fl (7.4-10.4) Immature Granulocytes % 1.000 % (0.001-0.429) Neutrophils % 68.0 % (39.0-77.0) Lymphocytes % 19.5 % (15.0-51.0) Monocytes % 9.5 % (0.0-11.0) Eosinophils % 1.4 % (0.0-7.0) Basophils % 0.6 % (0.0-2.0) Nucleated Red Blood Cells % 0.2 /100WBC (0.0-0.0) Immature Granulocytes # 0.090 10^3/ul (0.0-0.031) Neutrophils # 6.3 10^3/ul (1.6-7.5) Lymphocytes # 1.8 10^3/ul (0.8-2.9) Monocytes # 0.9 10^3/ul (0.3-0.9) Eosinophils # 0.1 10^3/ul (0.0-0.5) Basophils # 0.1 10^3/ul (0.0-0.1) Nucleated Red Blood Cells # 0.0 10^3/ul (0.0-0.0) Sodium Level 136 mmol/L (135-144) Potassium Level 4.4 mmol/L (3.5-5.1) Chloride Level 108 mmol/L (97-110) Carbon Dioxide Level 20 mmol/L (21-31) Anion Gap 8 (5-13) Blood Urea Nitrogen 31 mg/dl (7-20) Creatinine 1.02 mg/dl (0.44-1.00) Est Glomerular Filtrat 57 mL/min (>60) Rate mL/min Glucose Level 134 mg/dl (70-220) Hemoglobin A1c 5.0 % (0-5.9) Calcium Level 8.7 mg/dl (8.4-10.2) Magnesium Level 1.6 mg/dl (1.7-2.5) Total Bilirubin 1.0 mg/dl (0.2-1.3) Direct Bilirubin 0.00 mg/dl (0.00-0.20) Indirect Bilirubin 1.0 mg/dl (0-1.1) Aspartate Amino 41 IU/L (15-46) Transf (AST/SGOT) Alanine 25 IU/L (13-69) Aminotransferase (ALT/SGPT) Alkaline Phosphatase 102 IU/L (42-121) Creatine Kinase 55 IU/L (23-200) Creatine Kinase Index 1.9 Creatinine Kinase MB (Mass) 1.02 ng/ml (0.0-2.4) Troponin I < 0.012 ng/ml (0.000-0.120) Total Protein 6.8 g/dl (6.1-8.1) Albumin 3.4 g/dl (3.3-4.9) Globulin 3.40 g/dl (1.3-3.2) Albumin/Globulin Ratio 1.00 Triglycerides Level 309 mg/dl (0-149) Cholesterol Level 173 mg/dl (100-200) LDL Cholesterol, Calculated 79 mg/dl HDL Cholesterol 32 mg/dl (37-92) Cholesterol/HDL Ratio 5.4 RATIO Lipase 2195 U/L (23-300) Thyroid Stimulating 3.530 MIU/L (0.465-4.680) Hormone (TSH) Ethyl Alcohol Level < 10.0 mg/dl (0-0) EDUIN WHIPPLE MD Dec 07, 2018 15:07
--- NOTE | 2018-12-07 15:24 | PN ---
Date/Time of Note Date/Time of Note DATE: 12/07/18 TIME: 15:19 Assessment/Plan VTE Prophylaxis Risk score (from Nsg)>0 risk: 1 SCD applied (from Ns): No SCD contraindicated: other Pharmacological prophylaxis: NA/contraindicated Pharm contraindication: bleeding Lines/Catheters IV Catheter Type (from Nrsg): Peripheral IV Assessment/Plan Assessment/Plan Assessment: Upper abdominal pain Nausea - acute pancreatitis Symptomatic severe anemia -hemoglobin 3.7 -corrected Questionable rectal bleeding Melena Recent NSAID use Alcohol abuse Chronic pancreatitis on CT - Lipase >2000 Psychiatric disorder -patient states she is Hypertension Dyslipidemia Homelessness Plan: Keep NPO IVF Pain management Antiemetics Recommend EGD/colonoscopy -refusing for now Continue pantoprazole twice daily and Carafate Monitor H&H Transfuse for hemoglobin less than 7.5 Patient seen in collaboration Dr. Flood Subjective: Patient is complaining of upper abdominal pain and nausea. Lipase is greater than 2000. No evidence of overt GI bleeding. No stool today. Hemoglobin is 13. We will downgrade the patient to clear liquid diet. Start IV fluids. Continue monitoring lipase. PHYSICAL EXAMINATION: GENERAL: Well developed, well nourished, alert & oriented x 2, in no acute distress SKIN: No lesions, no stigmata chronic liver disease, no evidence of bleeding diathesis LYMPHATIC: No palpable lymphadenopathy. HEAD: Normocephalic, atraumatic, no tenderness. EYES: Pupils equal reactive to light and accommodation, full extraocular movements, sclera clear, non-icteric, no discharge. EARS/NOSE AND THROAT: Ears normal, nose normal, oropharynx normal, oral membranes well hydrated without lesions. NECK: Supple, no masses, thyroid normal, JVP within normal limits, carotids normal without bruits. CHEST: Inspection within normal limits. CARDIOVASCULAR: Heart: Regular rate and rhythm, no murmurs, gallops or rubs. Peripheral pulses present within normal limits, no cyanosis, clubbing or edemas. No pulsatile abdominal mass RESPIRATORY: Lungs clear to auscultation and percussion, no wheezing, no rubs GASTROINTESTINAL AND LIVER: Abdomen: Soft, upper abdominal tenderness, non- distended, no hernias, no masses, no organomegaly, no ascites, no guarding, no rebound tenderness, normoactive bowel sounds. Rectal: Deferred. GENITOURINARY: Female genitalia within normal limits. EXTREMITIES: No cyanosis, clubbing or edema. Result Diagram: 12/06/18 1659 12/06/18 1659 Results 24hrs Laboratory Tests Test 12/06/18 16:50 12/06/18 16:59 Serum HCG, Qualitative NEGATIVE White Blood Count 9.3 # Red Blood Count 4.49 # Hemoglobin 13.3 # Hematocrit 38.6 # Mean Corpuscular Volume 86.0 Mean Corpuscular Hemoglobin 29.6 Mean Corpuscular Hemoglobin Concent 34.5 Red Cell Distribution Width 17.0 H Platelet Count 186 # Mean Platelet Volume 10.5 H Immature Granulocytes % 1.000 H Neutrophils % 68.0 Lymphocytes % 19.5 Monocytes % 9.5 Eosinophils % 1.4 Basophils % 0.6 Nucleated Red Blood Cells % 0.2 H Immature Granulocytes # 0.090 H Neutrophils # 6.3 Lymphocytes # 1.8 Monocytes # 0.9 Eosinophils # 0.1 Basophils # 0.1 Nucleated Red Blood Cells # 0.0 Sodium Level 136 Potassium Level 4.4 Chloride Level 108 Carbon Dioxide Level 20 L Anion Gap 8 Blood Urea Nitrogen 31 #H Creatinine 1.02 H Est Glomerular Filtrat Rate mL/min 57 L Glucose Level 134 Hemoglobin A1c 5.0 Calcium Level 8.7 Magnesium Level 1.6 L Total Bilirubin 1.0 Direct Bilirubin 0.00 Indirect Bilirubin 1.0 Aspartate Amino Transf (AST/SGOT) 41 Alanine Aminotransferase (ALT/SGPT) 25 Alkaline Phosphatase 102 Creatine Kinase 55 Creatine Kinase Index 1.9 Creatinine Kinase MB (Mass) 1.02 Troponin I < 0.012 Total Protein 6.8 Albumin 3.4 Globulin 3.40 H Albumin/Globulin Ratio 1.00 Triglycerides Level 309 H Cholesterol Level 173 LDL Cholesterol, Calculated 79 HDL Cholesterol 32 L Cholesterol/HDL Ratio 5.4 Lipase 2195 H Thyroid Stimulating Hormone (TSH) 3.530 Ethyl Alcohol Level < 10.0 H CC: BENJAMIN FLOOD MD ; Exam/Review of Systems Exam Vitals Vital Signs Date Temp Pulse Resp B/P (MAP) Pulse Ox O2 O2 Flow FiO2 Time Delivery Rate 12/07/18 98.1 86 19 143/81 97 11:12 (101) 12/07/18 Nasal 2.0 03:15 Cannula Intake and Output 12/06/18 12/06/18 12/07/18 1515:00 23:00 07:00 IntakeIntake Total 240 ml 600 ml 200 ml OutputOutput Total 2 ml BalanceBalance 238 ml 600 ml 200 ml Results Results 24hrs Laboratory Tests Test 12/06/18 16:50 12/06/18 16:59 Serum HCG, Qualitative NEGATIVE White Blood Count 9.3 # Red Blood Count 4.49 # Hemoglobin 13.3 # Hematocrit 38.6 # Mean Corpuscular Volume 86.0 Mean Corpuscular Hemoglobin 29.6 Mean Corpuscular Hemoglobin Concent 34.5 Red Cell Distribution Width 17.0 H Platelet Count 186 # Mean Platelet Volume 10.5 H Immature Granulocytes % 1.000 H Neutrophils % 68.0 Lymphocytes % 19.5 Monocytes % 9.5 Eosinophils % 1.4 Basophils % 0.6 Nucleated Red Blood Cells % 0.2 H Immature Granulocytes # 0.090 H Neutrophils # 6.3 Lymphocytes # 1.8 Monocytes # 0.9 Eosinophils # 0.1 Basophils # 0.1 Nucleated Red Blood Cells # 0.0 Sodium Level 136 Potassium Level 4.4 Chloride Level 108 Carbon Dioxide Level 20 L Anion Gap 8 Blood Urea Nitrogen 31 #H Creatinine 1.02 H Est Glomerular Filtrat Rate mL/min 57 L Glucose Level 134 Hemoglobin A1c 5.0 Calcium Level 8.7 Magnesium Level 1.6 L Total Bilirubin 1.0 Direct Bilirubin 0.00 Indirect Bilirubin 1.0 Aspartate Amino Transf (AST/SGOT) 41 Alanine Aminotransferase (ALT/SGPT) 25 Alkaline Phosphatase 102 Creatine Kinase 55 Creatine Kinase Index 1.9 Creatinine Kinase MB (Mass) 1.02 Troponin I < 0.012 Total Protein 6.8 Albumin 3.4 Globulin 3.40 H Albumin/Globulin Ratio 1.00 Triglycerides Level 309 H Cholesterol Level 173 LDL Cholesterol, Calculated 79 HDL Cholesterol 32 L Cholesterol/HDL Ratio 5.4 Lipase 2195 H Thyroid Stimulating Hormone (TSH) 3.530 Ethyl Alcohol Level < 10.0 H Medications Medication Current Medications Gabapentin (Neurontin) 100 mg BID PO Last administered on 12/07/18at 08:36; Admin Dose 100 MG; Start 12/05/18 at 22:00 Quetiapine Fumarate (Seroquel) 50 mg HS PO Last administered on 12/06/18at 20:58; Admin Dose 50 MG; Start 12/06/18 at 21:00 Morphine Sulfate (morphine) 1 mg Q4H PRN IV SEVERE PAIN LEVEL 7-10 Last administered on 7/14/19at 12:43; Admin Dose 1 MG; Start 12/06/18 at 02:30 Atorvastatin Calcium (Lipitor) 20 mg HS PO Last administered on 12/06/18 20:58; Admin Dose 20 MG; Start 12/06/18 at 21:00 Carvedilol (Coreg) 3.125 mg BID PO Last administered on 12/07/18 08:36; Admin Dose 3.125 MG; Start 12/06/18 at 09:00 Pantoprazole (Protonix Iv) 40 mg BID@06,18 IV Last administered on 12/06/18 17:15; Admin Dose 40 MG; Start 12/06/18 at 06:00 Lorazepam (Ativan) 0.5 mg Q6H PRN IV ANXIETY; Start 12/06/18 at 05:30 Sucralfate (Carafate Susp) 1 gm QID GTB Last administered on 12/07/18 12:43; Admin Dose 1 GM; Start 12/06/18 at 17:00 PIERRE GUZMÁN NP Dec 07, 2018 15:24
[2018-12-07] MEDS ORDERED: SOD CHLORIDE 0.45% 1,000 ML IV SCH (15:30)
--- NOTE | 2018-12-07 16:10 | RADRPT ---
Echocardiogram Report Patient Name: Lee HARRY ID: [id number] : 1965 (53y 9m)Study Date: 12/07/2018 9:16:41 AM Gender: FAccession #: [id number] Tech: LE Location: [facility] Ref.Physician: LADY VINES Height(Cm): BSA: Weight(Kg): Quality: GoodOrder Physician: LADY VINES Account #: Procedures: Echocardiographic Report: Transthoracic echocardiogram with complete 2D, M-Mode, and doppler examination. Indications: Cardiomegaly. Measurements: 2D/M Mode Doppler Measurement Value Normal Range Measurement Value Normal Range LVIDd 2D 4.4 [ 3.8 - 5.2 ] cm AV Mean Evin 1.0 [ 70.0 - 90.0 ] cm/sec LVIDs 2D 3.5 [ 2.2 - 3.5 ] cm AV Mean PG 5.0 [ 2.0 - 4.0 ] mmHg LVPWd 2D 1.1 [ 0.6 - 0.9 ] cm AV Peak Evin 1.4 [ 100.0 - 170.0 ] cm/sec IVSd 2D 1.1 [ 0.6 - 0.9 ] cm AV Peak PG 8.0 [ 2.0 - 9.0 ] mmHg EF 2D 40.0 [ 54.0 - 74.0 ] percent AV VTI 25.1 cm LVOT Diam 1.9 [ 2.1 - 2.5 ] cm LVOT Peak Evin 1.0 [ 70.0 - 110.0 ] cm/sec LVOT Peak PG 4.0 [ 2.0 - 6.0 ] mmHg MV E Peak Evin 0.8 [ 60.0 - 130.0 ] cm/sec MV A Peak Evin 1.1 [ 100.0 - 120.0 ] cm/sec MV E/A 0.7 [ 0.8 - 1.5 ] ratio MV Decel Time 306 [ 104 - 258 ] msec Lat E` Evin 0.0 [ 10.0 - 15.0 ] cm/sec Lateral E/E` 19.0 [ 1.0 - 2.0 ] ratio Med E` Evin 0.0 cm/sec MV E/A 0.7 [ 0.8 - 1.5 ] ratio PV Peak Evin 0.7 [ 40.0 - 80.0 ] cm/sec PV Peak PG 2.0 mmHg Findings: Left Ventricle: Normal left ventricular cavity size. Normal left ventricular wall thickness. Mild left ventricular systolic dysfunction. Ejection fraction is visually estimated at 45 %. Tissue Doppler/Mitral Doppler indices are consistent with impaired relaxation (Stage I diastolic dysfunction). Right Ventricle: Normal right ventricular size. Normal right ventricular systolic function. Left Atrium: The left atrium is normal in size. Right Atrium: The right atrium is normal in size. Atrial Septum: Aneurysmal atrial septum. Mitral Valve: Normal appearance of the mitral valve. Mild to moderate mitral valve regurgitation. Aortic Valve: Normal appearance of the aortic valve. No significant aortic stenosis eith trivial insufficiency. Tricuspid Valve: Normal appearance and function of the tricuspid valve with trace physiologic regurgitation. Pulmonic Valve: Normal pulmonic valve appearance. Pericardium: Normal pericardium with no significant pericardial effusion. Aorta: Normal aortic root. IVC: Normal size and normal respiratory collapse consistent with normal right atrial pressure. Conclusions: Normal left ventricular cavity size. Normal left ventricular wall thickness. Mild left ventricular systolic dysfunction. Ejection fraction is visually estimated at 45 %. Tissue Doppler/Mitral Doppler indices are consistent with impaired relaxation (Stage I diastolic dysfunction). Normal right ventricular size. Normal right ventricular systolic function. Normal appearance of the mitral valve. Mild to moderate mitral valve regurgitation. No significant valvular stenosis or regurgitation seen of remaining visualized valves. Normal pericardium with no significant pericardial effusion. Electronically Signed By: Hitesh Becerra 2018-12-07 16:09:00 PDT
== END 2018-12-07 16:23 | disposition home or self-care (01) | DRG 811 ==
LOC: E/R 20:06 → TEL 21:43
PROVIDERS: ADMIT Family Medicine; ATTEND Family Medicine
PROC: 30233N1 Transfusion of Nonautologous Red Blood Cells into Peripheral Vein, Percutaneous Approach (ICD-10-PCS; principal; 2018-12-06)
DX: D62 Acute posthemorrhagic anemia (principal); K85.90 Acute pancreatitis without necrosis or infection, unspecified; K92.1 Melena; K86.1 Other chronic pancreatitis; I10 Essential (primary) hypertension; I25.5 Ischemic cardiomyopathy; F17.200 Nicotine dependence, unspecified, uncomplicated; Z79.82 Long term (current) use of aspirin; E78.5 Hyperlipidemia, unspecified; Z59.0 Homelessness; F10.10 Alcohol abuse, uncomplicated; F99 Mental disorder, not otherwise specified
CPT/HCPCS: 36415; 36430; 71045; 74178; 76830; 76856; 80048; 80053; 80061; 80307; 81003; 82550; 82553; 83036; 83690; 83735; 84443; 84484; 84703; 85025; 85610; 85730; 86850; 86900; 86901; 86920; 93005; 93306; C9113; J1940; J2270; J2405; J7040; P9016; Q9967